=== PATIENT | male | born 1950 | race Caucasian/White ===

== ENCOUNTER → 2016-11-19 | Outpatient (REF) | payer MEDICARE | LOC: M SFHCPLAZ 12:38 | PROVIDERS: ATTEND Nurse Practitioner Adult Health | DX: R35.0 Frequency of micturition (principal) ==

== ENCOUNTER → 2017-01-17 | Outpatient (CLI) | payer MEDICARE ==
[2017-01-17 09:53] LABS: MEAN CORPUSCULAR HEMOGLOBIN 31.1 pg (27.0-33.0); MEAN CORPUSCULAR HGB CONC 34.1 g/dl (32.0-36.5); RED CELL DISTRIBUTION WIDTH 13.8 % (11.5-14.5); WHITE BLOOD COUNT 4.2 K/mm3 (4.0-10.0)
[2017-01-17 10:21] LABS: ALBUMIN 3.6 GM/DL (3.2-5.2); ALBUMIN/GLOBULIN RATIO 1.24 (1.00-1.93); ALKALINE PHOSPHATASE 64 U/L (45-117); ALT/SGPT 23 U/L (12-78); ANION GAP 7 MEQ/L (8-16); AST/SGOT 22 U/L (15-37); BILIRUBIN,TOTAL 0.7 MG/DL (0.2-1.0); BLOOD UREA NITROGEN 13 MG/DL (7-18); CALCIUM LEVEL 8.3 MG/DL (8.8-10.2); CARBON DIOXIDE LEVEL 27 MEQ/L (21-32); CHLORIDE LEVEL 107 MEQ/L (98-107); CHOLESTEROL LEVEL 143 MG/DL (<200); CREATININE FOR GFR 0.82 MG/DL (0.70-1.30); GLOMERULAR FILTRATION RATE > 60.0 (>49); GLUCOSE, FASTING 104 MG/DL (80-110); SODIUM LEVEL 141 MEQ/L (136-145); TOTAL PROTEIN 6.5 GM/DL (6.4-8.2); TRIGLYCERIDES LEVEL 136 MG/DL (<150)
== END ==
LOC: M WUC 08:06
PROVIDERS: ATTEND Nurse Practitioner Adult Health
DX: Z00.00 Encounter for general adult medical examination without abnormal findings (principal); I10 Essential (primary) hypertension

== ENCOUNTER → 2017-05-15 | Outpatient (REF) | payer MEDICARE | LOC: M LAB REF 13:19 | PROVIDERS: ATTEND Physician Assistant | DX: J02.9 Acute pharyngitis, unspecified (principal) ==

== ENCOUNTER → 2018-01-19 | Outpatient (CLI) | payer MEDICARE ==
[2018-01-19 10:18] LABS: ALBUMIN 3.8 GM/DL (3.2-5.2); ALBUMIN/GLOBULIN RATIO 1.41 (1.00-1.93); ALKALINE PHOSPHATASE 60 U/L (45-117); ALT/SGPT 28 U/L (12-78); ANION GAP 5 MEQ/L (8-16); AST/SGOT 29 U/L (7-37); BILIRUBIN,TOTAL 0.5 MG/DL (0.2-1.0); BLOOD UREA NITROGEN 12 MG/DL (7-18); CALCIUM LEVEL 8.5 MG/DL (8.8-10.2); CARBON DIOXIDE LEVEL 30 MEQ/L (21-32); CHLORIDE LEVEL 110 MEQ/L (98-107); CHOLESTEROL LEVEL 141 MG/DL (<200); GLOMERULAR FILTRATION RATE > 60.0 (>49); GLUCOSE, FASTING 107 MG/DL (70-100); HDL CHOLESTEROL 47 MG/DL (>40); LDL CHOLESTEROL 79.2 MG/DL (<100); NON-HDL-C 94 MG/DL; POTASSIUM SERUM 4.6 MEQ/L (3.5-5.1); SODIUM LEVEL 145 MEQ/L (136-145); TOTAL PROTEIN 6.5 GM/DL (6.4-8.2); TRIGLYCERIDES LEVEL 74 MG/DL (<150)
== END ==
LOC: M WUC 08:09
DX: Z00.00 Encounter for general adult medical examination without abnormal findings (principal); I10 Essential (primary) hypertension
CPT/HCPCS: 80053

== ENCOUNTER → 2020-05-30 | Outpatient (CLI) | payer MEDICARE ==
[2020-05-30 13:56] LABS: HEMATOCRIT 47.4 % (42.0-52.0); HEMOGLOBIN 15.7 g/dl (13.5-17.5); MEAN CORPUSCULAR HEMOGLOBIN 32.2 pg (27.0-33.0); MEAN CORPUSCULAR HGB CONC 33.1 g/dl (32.0-36.5); MEAN CORPUSCULAR VOLUME 97.1 fl (80.0-96.0); PLATELET COUNT, AUTOMATED 188 10^3/uL (150-450); RED BLOOD COUNT 4.88 10^6/uL (4.30-6.10)
[2020-05-30 14:03] LABS: ALBUMIN 3.9 GM/DL (3.2-5.2); ALT/SGPT 23 U/L (12-78); BILIRUBIN,TOTAL 0.6 MG/DL (0.2-1.0); BLOOD UREA NITROGEN 15 MG/DL (7-18); CALCIUM LEVEL 8.6 MG/DL (8.8-10.2); CARBON DIOXIDE LEVEL 29 MEQ/L (21-32); CHLORIDE LEVEL 109 MEQ/L (98-107); CHOLESTEROL LEVEL 164 MG/DL (<200); CHOLESTEROL RISK RATIO 3.489 (<5); CREATININE FOR GFR 0.76 MG/DL (0.70-1.30); GLOMERULAR FILTRATION RATE > 60.0 (>42); GLUCOSE, FASTING 117 MG/DL (70-100); HDL CHOLESTEROL 47 MG/DL (>40); LDL CHOLESTEROL 103 MG/DL (<100); NON-HDL-C 117 MG/DL; POTASSIUM SERUM 4.5 MEQ/L (3.5-5.1); SODIUM LEVEL 143 MEQ/L (136-145); TOTAL PROTEIN 6.6 GM/DL (6.4-8.2); TRIGLYCERIDES LEVEL 72 MG/DL (<150)
== END ==
LOC: M WUC 08:26
PROVIDERS: ATTEND Nurse Practitioner Adult Health
DX: Z00.00 Encounter for general adult medical examination without abnormal findings (principal)

== ENCOUNTER → 2021-03-07 | Outpatient (REF) | payer MEDICARE ==
[2021-03-07 13:51] LABS: ALBUMIN 3.8 GM/DL (3.2-5.2); ALT/SGPT 30 U/L (12-78); BILIRUBIN,TOTAL 0.7 MG/DL (0.2-1.0); BLOOD UREA NITROGEN 19 MG/DL (7-18); CALCIUM LEVEL 8.9 MG/DL (8.8-10.2); CARBON DIOXIDE LEVEL 26 MEQ/L (21-32); CHLORIDE LEVEL 104 MEQ/L (98-107); CREATININE FOR GFR 0.78 MG/DL (0.70-1.30); GLOMERULAR FILTRATION RATE > 60.0 (>42); GLUCOSE, FASTING 98 MG/DL (70-100); POTASSIUM SERUM 3.9 MEQ/L (3.5-5.1); SODIUM LEVEL 138 MEQ/L (136-145)
== END ==
LOC: M SFHCPLAZ 10:33
PROVIDERS: ATTEND Nurse Practitioner Adult Health
DX: I10 Essential (primary) hypertension (principal)

== ENCOUNTER → 2021-07-11 | Outpatient (CLI) | payer MEDICARE ==
[2021-07-11 10:53] LABS: HEMATOCRIT 42.1 % (42.0-52.0); HEMOGLOBIN 14.2 g/dl (13.5-17.5); MEAN CORPUSCULAR HEMOGLOBIN 31.2 pg (27.0-33.0); MEAN CORPUSCULAR HGB CONC 33.7 g/dl (32.0-36.5); MEAN CORPUSCULAR VOLUME 92.5 fl (80.0-96.0); PLATELET COUNT, AUTOMATED 187 10^3/uL (150-450); RED BLOOD COUNT 4.55 10^6/uL (4.30-6.10); WHITE BLOOD COUNT 5.9 10^3/uL (4.0-10.0)
[2021-07-11 11:31] LABS: ALBUMIN 3.5 GM/DL (3.2-5.2); ALT/SGPT 33 U/L (12-78); BILIRUBIN,TOTAL 0.6 MG/DL (0.2-1.0); BLOOD UREA NITROGEN 15 MG/DL (7-18); CALCIUM LEVEL 8.7 MG/DL (8.8-10.2); CARBON DIOXIDE LEVEL 29 MEQ/L (21-32); CHLORIDE LEVEL 108 MEQ/L (98-107); CHOLESTEROL LEVEL 168 MG/DL (<200); CHOLESTEROL RISK RATIO 3.652 (<5); CREATININE FOR GFR 0.73 MG/DL (0.70-1.30); GLOMERULAR FILTRATION RATE > 60.0 (>42); GLUCOSE, FASTING 109 MG/DL (70-100); HDL CHOLESTEROL 46 MG/DL (>40); LDL CHOLESTEROL 104 MG/DL (<100); NON-HDL-C 122 MG/DL; SODIUM LEVEL 142 MEQ/L (136-145); TOTAL PROTEIN 6.4 GM/DL (6.4-8.2); TRIGLYCERIDES LEVEL 90 MG/DL (<150)
== END ==
LOC: M LAB 08:49 → M PLALAB 08:49
PROVIDERS: ATTEND Nurse Practitioner Adult Health
DX: Z00.00 Encounter for general adult medical examination without abnormal findings (principal); Z13.220 Encounter for screening for lipoid disorders; I10 Essential (primary) hypertension

== ENCOUNTER → 2022-01-23 | Outpatient (CLI) | payer MEDICARE ==
[2022-01-23 10:21] LABS: HEMATOCRIT 46.5 % (42.0-52.0); HEMOGLOBIN 15.4 g/dl (13.5-17.5); MEAN CORPUSCULAR HEMOGLOBIN 29.9 pg (27.0-33.0); MEAN CORPUSCULAR HGB CONC 33.1 g/dl (32.0-36.5); MEAN CORPUSCULAR VOLUME 90.3 fl (80.0-96.0); PLATELET COUNT, AUTOMATED 227 10^3/uL (150-450); RED BLOOD COUNT 5.15 10^6/uL (4.30-6.10); WHITE BLOOD COUNT 5.7 10^3/uL (4.0-10.0)
[2022-01-23 10:35] LABS: ALT/SGPT 33 U/L (12-78); BILIRUBIN,TOTAL 0.6 MG/DL (0.2-1.0); BLOOD UREA NITROGEN 21 MG/DL (7-18); CALCIUM LEVEL 9.5 MG/DL (8.8-10.2); CARBON DIOXIDE LEVEL 29 MEQ/L (21-32); CHLORIDE LEVEL 104 MEQ/L (98-107); CHOLESTEROL LEVEL 166 MG/DL (<200); CHOLESTEROL RISK RATIO 4.368 (<5); CREATININE FOR GFR 0.76 MG/DL (0.70-1.30); GLOMERULAR FILTRATION RATE > 60.0 (>42); GLUCOSE, FASTING 125 MG/DL (70-100); HDL CHOLESTEROL 38 MG/DL (>40); LDL CHOLESTEROL 100 MG/DL (<100); NON-HDL-C 128 MG/DL; POTASSIUM SERUM 4.8 MEQ/L (3.5-5.1); SODIUM LEVEL 139 MEQ/L (136-145); TRIGLYCERIDES LEVEL 140 MG/DL (<150)
== END ==
LOC: M PLALAB 08:30
PROVIDERS: ATTEND Nurse Practitioner Adult Health
DX: I10 Essential (primary) hypertension (principal); Z13.220 Encounter for screening for lipoid disorders; I48.91 Unspecified atrial fibrillation

== ENCOUNTER → 2022-02-18 | Outpatient (CLI) | payer MEDICARE ==
[~2022-02-18] MED LIST: BACL1TAB9 PO; DIGO0.123 PO; DILT180C70 PO; ELIQ5TAB PO; GABA-282 PO; LISI20TA35 PO; PANT40TA29 PO; PRESCAP PO; TAMS1CAP17 PO; TRAM50TA2 PO; VITMTA PO
== END ==
LOC: M SLEEP HO 10:31
PROVIDERS: ATTEND Internal Medicine Cardiovascular Disease
DX: G47.8 Other sleep disorders (principal)

== ENCOUNTER 2022-03-13 10:02 | Inpatient (IN) | payer MEDICARE ==
[~2022-03-13] VITALS: Ht 167.6 cm; Wt 100.0 kg
[2022-03-13 10:34] LABS: BASO % 0.3 % (0.0-1.0); EOS % 0.1 % (0.0-3.0); HEMATOCRIT 44.1 % (42.0-52.0); HEMOGLOBIN 14.6 g/dl (13.5-17.5); LYMPH # 0.9 10^3/uL (1.5-5.0); LYMPH % 6.2 % (24.0-44.0); MEAN CORPUSCULAR HEMOGLOBIN 30.2 pg (27.0-33.0); MEAN CORPUSCULAR HGB CONC 33.1 g/dl (32.0-36.5); MEAN CORPUSCULAR VOLUME 91.1 fl (80.0-96.0); MONO # 0.9 10^3/uL (0.0-0.8); MONO % 6.4 % (2.0-8.0); NEUTROPHILS # 12.5 10^3/uL (1.5-8.5); NEUTROPHILS % 86.6 % (36.0-66.0); PLATELET COUNT, AUTOMATED 209 10^3/uL (150-450); RED BLOOD COUNT 4.84 10^6/uL (4.30-6.10); WHITE BLOOD COUNT 14.4 10^3/uL (4.0-10.0)
[2022-03-13] MEDS ORDERED: ACETAMINOPHEN 325 MG TAB PO ONE (10:35)
[2022-03-13] MEDS ORDERED: cefTRIAXone SOD 2 GM in D5W MINI-BAG PLUS 50 ML IV ONE (10:35)
[2022-03-13 10:58] LABS: OSMOLALITY SERUM 284 MOSM/KG (280-301)
[2022-03-13 11:07] LABS: ALBUMIN 3.8 GM/DL (3.2-5.2); ALT/SGPT 26 U/L (12-78); BILIRUBIN,DIRECT 0.3 MG/DL (0.0-0.2); BILIRUBIN,TOTAL 0.9 MG/DL (0.2-1.0); BLOOD UREA NITROGEN 14 MG/DL (7-18); CALCIUM LEVEL 9.3 MG/DL (8.8-10.2); CARBON DIOXIDE LEVEL 27 MEQ/L (21-32); CHLORIDE LEVEL 104 MEQ/L (98-107); CREATININE FOR GFR 0.81 MG/DL (0.70-1.30); GLOMERULAR FILTRATION RATE > 60.0 (>42); GLUCOSE, FASTING 124 MG/DL (70-100); POTASSIUM SERUM 4.5 MEQ/L (3.5-5.1); SODIUM LEVEL 138 MEQ/L (136-145); TOTAL PROTEIN 7.3 GM/DL (6.4-8.2)
[2022-03-13 11:14] LABS: RSV AMPLIFICATION NEGATIVE (NEGATIVE)
[2022-03-13] MEDS ORDERED: BACL1TAB9 PO (12:28)
[2022-03-13] MEDS ORDERED: PANT40TA29 PO (12:28)
[2022-03-13] MEDS ORDERED: PRESCAP PO (12:28)
[2022-03-13] MEDS ORDERED: LISI20TA35 PO (12:28)
[2022-03-13] MEDS ORDERED: DILT180C70 PO (12:28)
[2022-03-13] MEDS ORDERED: GABA-282 PO (12:28)
[2022-03-13] MEDS ORDERED: DIGO0.123 PO (12:28)
[2022-03-13] MEDS ORDERED: TAMS1CAP17 PO (12:28)
[2022-03-13] MEDS ORDERED: ELIQ5TAB PO (12:28)
[2022-03-13] MEDS ORDERED: VITMTA PO (12:28)
[2022-03-13] MEDS ORDERED: TRAM50TA2 PO (12:28)
[2022-03-13] MEDS ORDERED: HOME MED LIST COMPLETE! XX SCH (12:35)
[2022-03-13 13:16] LABS: DIGOXIN LEVEL 0.6 NG/ML (0.5-2.0)
[2022-03-13] MEDS ORDERED: METOPROLOL 5 MG/5 ML VIAL IV STA (14:51)
[2022-03-13 16:18] LABS: INR 1.16; PROTHROMBIN TIME 15.2 SECONDS (12.7-14.5)
[2022-03-13 16:19] LABS: PARTIAL THROMBOPLASTIN TIME 29.7 SECONDS (25.9-37.0)
[2022-03-13 16:25] VITALS: BP 164/80
[2022-03-13] MEDS: NS 1,000 ML IV SCH (16:27)
[2022-03-13] MEDS ORDERED: ceFAZolin SOD 2 GM in IV 1 EA IV SCH (19:00)
[2022-03-13 20:00] VITALS: BP 149/87
[2022-03-13] MEDS: APIXABAN 5 MG TAB (ELIQUIS) PO SCH (20:22)
[2022-03-13] MEDS: GABAPENTIN 300 MG CAP PO SCH (20:22)
[2022-03-13] MEDS: diltiaZEM **CD** 180 MG CAP PO SCH (20:22)
[2022-03-13] MEDS: OCUVITE 1 TAB PO SCH (20:22)
[2022-03-13] MEDS: BACLOFEN 10 MG TAB PO SCH (20:22)
[2022-03-13] MEDS: traMADol 50 MG TAB PO SCH (20:22)
[2022-03-13] MEDS ORDERED: NS 1,000 ML IV ONE (21:10)
[2022-03-13] MEDS ORDERED: NS 500 ML IV ONE (21:10)
[2022-03-13 21:43] LABS: MAGNESIUM LEVEL 1.9 MG/DL (1.8-2.4)
[2022-03-13 22:21] VITALS: BP 126/66
[2022-03-13] MEDS: ACETAMINOPHEN TAB 650MG DOSE (2X325MG) PO PRN (22:33)
[2022-03-13] MEDS ORDERED: carisoprodoL 350 MG TAB PO ONE (23:00)
[2022-03-13] MEDS ORDERED: METOPROLOL TART 12.5 MG PER 1/2 TAB PO ONE (23:00)
[2022-03-14] VITALS (8 sets, daily range): BP systolic 90–138; BP diastolic 60–67
[2022-03-14] MEDS ORDERED: PIPERACILLIN/TAZOBACTAM SOD 3.375 GM in D5W MINI-BAG PLUS 50 ML IV SCH (00:25)
[2022-03-14] MEDS ORDERED: NS 500 ML IV ONE (00:25)
[2022-03-14] MEDS: PIPERACILLIN/TAZOBACTAM SOD 4.5 GM in D5W MINI-BAG PLUS 50 ML IV SCH ×4 (01:25→20:21)
[2022-03-14] MEDS: NS 1,000 ML IV SCH ×3 (02:47→23:53)
[2022-03-14] MEDS ORDERED: VANCOMYCIN HCL 1,000 MG, VIAL MATE ADAPTER 1 EACH in NS 250 ML IV ONE ×2 (03:00→04:00)
[2022-03-14 05:30] LABS: MEAN CORPUSCULAR HEMOGLOBIN 30.5 pg (27.0-33.0); MEAN CORPUSCULAR VOLUME 92.5 fl (80.0-96.0); PLATELET COUNT, AUTOMATED 155 10^3/uL (150-450); WHITE BLOOD COUNT 10.5 10^3/uL (4.0-10.0)
[2022-03-14 05:36] LABS: HEMOGLOBIN 12.2 g/dl (13.5-17.5)
[2022-03-14] MEDS ORDERED: OLANZapine INTRAMUSCULAR 10MG VIAL IM ONE (06:00)
[2022-03-14 06:03] LABS: ALBUMIN 2.8 GM/DL (3.2-5.2); ALT/SGPT 22 U/L (12-78); BILIRUBIN,TOTAL 1.3 MG/DL (0.2-1.0); BLOOD UREA NITROGEN 13 MG/DL (7-18); CARBON DIOXIDE LEVEL 29 MEQ/L (21-32); CHLORIDE LEVEL 108 MEQ/L (98-107); CREATININE FOR GFR 0.78 MG/DL (0.70-1.30); GLOMERULAR FILTRATION RATE > 60.0 (>42); GLUCOSE, FASTING 120 MG/DL (70-100); POTASSIUM SERUM 4.1 MEQ/L (3.5-5.1); SODIUM LEVEL 140 MEQ/L (136-145); TOTAL PROTEIN 5.6 GM/DL (6.4-8.2)
[2022-03-14 08:47] LABS: VITAMIN B12 LEVEL 417 PG/ML (247-911)
[2022-03-14] MEDS: GABAPENTIN 300 MG CAP PO SCH ×2 (09:34→20:20)
[2022-03-14] MEDS: BACLOFEN 10 MG TAB PO SCH ×2 (09:34→20:20)
[2022-03-14] MEDS: OCUVITE 1 TAB PO SCH ×2 (09:35→20:20)
[2022-03-14] MEDS: PANTOPRAZOLE 40MG TAB (PROTONIX) PO SCH (09:35)
[2022-03-14] MEDS: MULTIVITAMINS/MINERALS THERAP 1 TAB PO SCH (09:35)
[2022-03-14] MEDS: APIXABAN 5 MG TAB (ELIQUIS) PO SCH ×2 (09:35→20:19)
[2022-03-14] MEDS: TAMSULOSIN 0.4 MG CAP PO SCH (09:35)
[2022-03-14] MEDS: traMADol 50 MG TAB PO SCH ×2 (09:37→20:20)
[2022-03-14] MEDS: DIGOXIN 0.125 MG TAB PO SCH (09:38)
[2022-03-14] MEDS: hydroCHLOROthiazide 12.5 MG CAPSULE PO SCH (09:41)
[2022-03-14] MEDS ORDERED: MIRALAX *UNIT DOSE* 17GM PACKET PO PRN (14:40)
[2022-03-14] MEDS: VANCOMYCIN HCL 500 MG in D5W MINI-BAG PLUS 100 ML IV SCH (15:11)
[2022-03-14] MEDS: VANCOMYCIN HCL 750 MG, VIAL MATE ADAPTER 1 EACH in NS 250 ML IV SCH (16:30)
[2022-03-14] MEDS: diltiaZEM **CD** 180 MG CAP PO SCH (20:19)
[2022-03-14] MEDS: DOCUSATE SODIUM 100MG CAPSULE PO SCH (20:20)
[2022-03-14] MEDS: SENNA 8.6 MG TAB (SENOKOT) PO SCH (20:20)
[2022-03-15] VITALS (7 sets, daily range): BP systolic 100–135; BP diastolic 60–78
[2022-03-15] MEDS: PIPERACILLIN/TAZOBACTAM SOD 4.5 GM in D5W MINI-BAG PLUS 50 ML IV SCH ×4 (02:13→21:41)
[2022-03-15] MEDS: VANCOMYCIN HCL 500 MG in D5W MINI-BAG PLUS 100 ML IV SCH (03:38)
[2022-03-15] MEDS: VANCOMYCIN HCL 750 MG, VIAL MATE ADAPTER 1 EACH in NS 250 ML IV SCH (04:53)
[2022-03-15 05:24] LABS: HEMATOCRIT 38.3 % (42.0-52.0); HEMOGLOBIN 12.5 g/dl (13.5-17.5); MEAN CORPUSCULAR HEMOGLOBIN 29.5 pg (27.0-33.0); MEAN CORPUSCULAR HGB CONC 32.6 g/dl (32.0-36.5); MEAN CORPUSCULAR VOLUME 90.3 fl (80.0-96.0); PLATELET COUNT, AUTOMATED 188 10^3/uL (150-450); RED BLOOD COUNT 4.24 10^6/uL (4.30-6.10)
[2022-03-15 05:43] LABS: ERYTHROCYTE SEDIMENTATION RATE 53 mm/hr (0-20)
[2022-03-15 05:45] LABS: ALBUMIN 2.6 GM/DL (3.2-5.2); ALT/SGPT 19 U/L (12-78); BILIRUBIN,TOTAL 0.9 MG/DL (0.2-1.0); BLOOD UREA NITROGEN 14 MG/DL (7-18); CALCIUM LEVEL 8.3 MG/DL (8.8-10.2); CARBON DIOXIDE LEVEL 23 MEQ/L (21-32); CHLORIDE LEVEL 108 MEQ/L (98-107); GLOMERULAR FILTRATION RATE > 60.0 (>42); GLUCOSE, FASTING 137 MG/DL (70-100); POTASSIUM SERUM 3.4 MEQ/L (3.5-5.1); SODIUM LEVEL 141 MEQ/L (136-145); TOTAL PROTEIN 5.7 GM/DL (6.4-8.2)
[2022-03-15 07:58] LABS: NT-PRO BNP 1877 PG/ML (<125)
[2022-03-15] MEDS ORDERED: POTASSIUM CHLORIDE 10MEQ SR TABLET PO ONE (08:00)
[2022-03-15] MEDS ORDERED: ISOVUE-370 76% 100ML VIAL As Ordered ONE (08:11)
[2022-03-15] MEDS: DOCUSATE SODIUM 100MG CAPSULE PO SCH ×3 (08:52→20:41)
[2022-03-15] MEDS: OCUVITE 1 TAB PO SCH ×2 (08:52→20:34)
[2022-03-15] MEDS: hydroCHLOROthiazide 12.5 MG CAPSULE PO SCH (08:52)
[2022-03-15] MEDS: traMADol 50 MG TAB PO SCH ×2 (08:53→20:33)
[2022-03-15] MEDS: PANTOPRAZOLE 40MG TAB (PROTONIX) PO SCH (08:54)
[2022-03-15] MEDS: GABAPENTIN 300 MG CAP PO SCH ×2 (08:54→20:34)
[2022-03-15] MEDS: APIXABAN 5 MG TAB (ELIQUIS) PO SCH ×2 (08:55→20:34)
[2022-03-15] MEDS: TAMSULOSIN 0.4 MG CAP PO SCH (08:55)
[2022-03-15] MEDS: DIGOXIN 0.125 MG TAB PO SCH (08:55)
[2022-03-15] MEDS: MULTIVITAMINS/MINERALS THERAP 1 TAB PO SCH (08:55)
[2022-03-15] MEDS: BACLOFEN 10 MG TAB PO SCH ×2 (08:55→20:34)
[2022-03-15] MEDS ORDERED: FUROSEMIDE 20MG/2ML VIAL (J1940) IV ONE (09:45)
[2022-03-15] MEDS ORDERED: ALBUTEROL SULFATE 2.5 MG/0.5 ML INH NEB SOLN NEB PRN (09:45)
[2022-03-15] MEDS: methylPREDNISolone 125MG 2ML VIAL IV SCH ×2 (10:08→21:41)
[2022-03-15] MEDS: IPRATROPIUM 0.5MG/ALBUTEROL 2.5MG INH SOL UD 3ML (DUONEB) NEB SCH ×3 (11:51→19:48)
[2022-03-15 15:43] LABS: HEPATITIS B SURFACE ANTIGEN NEGATIVE (NEGATIVE)
[2022-03-15 16:12] LABS: HEPATITIS C VIRUS ABY INDEX 0.1 INDEX (<0.8); HIV 1&2 SCREEN CENTAUR NEGATIVE (NEGATIVE)
[2022-03-15] MEDS: FLUCONAZOLE 100 MG TAB PO SCH (16:29)
[2022-03-15] MEDS: SENNA 8.6 MG TAB (SENOKOT) PO SCH ×2 (20:34→20:42)
[2022-03-15] MEDS: diltiaZEM **CD** 180 MG CAP PO SCH (20:35)
[2022-03-16] MEDS: IPRATROPIUM 0.5MG/ALBUTEROL 2.5MG INH SOL UD 3ML (DUONEB) NEB SCH ×4 (02:00→19:35)
[2022-03-16] MEDS: PIPERACILLIN/TAZOBACTAM SOD 4.5 GM in D5W MINI-BAG PLUS 50 ML IV SCH (02:41)
[2022-03-16 04:00] VITALS: BP 117/67
[2022-03-16] MEDS ORDERED: OLANZapine INTRAMUSCULAR 10MG VIAL IM ONE (04:00)
[2022-03-16] MEDS ORDERED: NS 1,000 ML IV SCH (06:15)
[2022-03-16 07:42] LABS: HEMATOCRIT 35.8 % (42.0-52.0); HEMOGLOBIN 11.8 g/dl (13.5-17.5); MEAN CORPUSCULAR HEMOGLOBIN 29.5 pg (27.0-33.0); MEAN CORPUSCULAR VOLUME 89.5 fl (80.0-96.0); PLATELET COUNT, AUTOMATED 192 10^3/uL (150-450)
[2022-03-16 08:00] VITALS: BP 126/67
[2022-03-16 08:07] LABS: ALBUMIN 2.6 GM/DL (3.2-5.2); ALT/SGPT 27 U/L (12-78); BILIRUBIN,TOTAL 0.5 MG/DL (0.2-1.0); BLOOD UREA NITROGEN 19 MG/DL (7-18); CALCIUM LEVEL 8.6 MG/DL (8.8-10.2); CARBON DIOXIDE LEVEL 26 MEQ/L (21-32); CHLORIDE LEVEL 107 MEQ/L (98-107); CREATININE FOR GFR 0.77 MG/DL (0.70-1.30); GLOMERULAR FILTRATION RATE > 60.0 (>42); GLUCOSE, FASTING 173 MG/DL (70-100); POTASSIUM SERUM 3.3 MEQ/L (3.5-5.1); SODIUM LEVEL 142 MEQ/L (136-145); TOTAL PROTEIN 5.8 GM/DL (6.4-8.2)
[2022-03-16] MEDS ORDERED: POTASSIUM CHLORIDE 10MEQ SR TABLET PO ONE (09:00)
[2022-03-16] MEDS: MULTIVITAMINS/MINERALS THERAP 1 TAB PO SCH (09:10)
[2022-03-16] MEDS: traMADol 50 MG TAB PO SCH ×2 (09:10→20:41)
[2022-03-16] MEDS: GABAPENTIN 300 MG CAP PO SCH ×2 (09:10→20:41)
[2022-03-16] MEDS: TAMSULOSIN 0.4 MG CAP PO SCH (09:10)
[2022-03-16] MEDS: FLUCONAZOLE 100 MG TAB PO SCH (09:10)
[2022-03-16] MEDS: hydroCHLOROthiazide 12.5 MG CAPSULE PO SCH (09:11)
[2022-03-16] MEDS: OCUVITE 1 TAB PO SCH ×2 (09:11→20:40)
[2022-03-16] MEDS: BACLOFEN 10 MG TAB PO SCH ×2 (09:11→20:41)
[2022-03-16] MEDS: methylPREDNISolone 125MG 2ML VIAL IV SCH (09:12)
[2022-03-16] MEDS: PANTOPRAZOLE 40MG TAB (PROTONIX) PO SCH (09:12)
[2022-03-16] MEDS: DIGOXIN 0.125 MG TAB PO SCH (09:12)
[2022-03-16] MEDS: APIXABAN 5 MG TAB (ELIQUIS) PO SCH ×2 (09:12→20:41)
[2022-03-16] MEDS: DOCUSATE SODIUM 100MG CAPSULE PO SCH ×2 (09:12→20:41)
[2022-03-16] MEDS: ceFAZolin SOD 1 GM in D5W MINI-BAG PLUS 50 ML IV SCH ×3 (09:13→23:07)
[2022-03-16] MEDS: FUROSEMIDE 40MG/4ML VIAL (J1940) IV SCH (10:41)
[2022-03-16 12:00] VITALS: BP 129/71
[2022-03-16 20:25] VITALS: BP 133/65
[2022-03-16] MEDS: diltiaZEM **CD** 180 MG CAP PO SCH (20:40)
[2022-03-16] MEDS: SENNA 8.6 MG TAB (SENOKOT) PO SCH (20:42)
[2022-03-17] MEDS: IPRATROPIUM 0.5MG/ALBUTEROL 2.5MG INH SOL UD 3ML (DUONEB) NEB SCH ×4 (02:00→20:23)
[2022-03-17] MEDS: ACETAMINOPHEN TAB 650MG DOSE (2X325MG) PO PRN (02:05)
[2022-03-17 04:52] VITALS: BP 107/77
[2022-03-17 07:38] LABS: HEMOGLOBIN 12.2 g/dl (13.5-17.5); MEAN CORPUSCULAR HEMOGLOBIN 29.8 pg (27.0-33.0); MEAN CORPUSCULAR VOLUME 90.2 fl (80.0-96.0); PLATELET COUNT, AUTOMATED 230 10^3/uL (150-450); WHITE BLOOD COUNT 9.8 10^3/uL (4.0-10.0)
[2022-03-17 08:00] VITALS: BP 123/91
[2022-03-17 08:12] LABS: ALBUMIN 2.7 GM/DL (3.2-5.2); ALT/SGPT 44 U/L (12-78); BILIRUBIN,TOTAL 0.2 MG/DL (0.2-1.0); BLOOD UREA NITROGEN 21 MG/DL (7-18); CALCIUM LEVEL 8.2 MG/DL (8.8-10.2); CARBON DIOXIDE LEVEL 29 MEQ/L (21-32); CHLORIDE LEVEL 106 MEQ/L (98-107); CREATININE FOR GFR 0.68 MG/DL (0.70-1.30); GLOMERULAR FILTRATION RATE > 60.0 (>42); GLUCOSE, FASTING 149 MG/DL (70-100); POTASSIUM SERUM 3.4 MEQ/L (3.5-5.1); SODIUM LEVEL 142 MEQ/L (136-145); TOTAL PROTEIN 5.6 GM/DL (6.4-8.2)
[2022-03-17] MEDS: ceFAZolin SOD 1 GM in D5W MINI-BAG PLUS 50 ML IV SCH ×3 (08:48→23:02)
[2022-03-17] MEDS: DOCUSATE SODIUM 100MG CAPSULE PO SCH ×2 (08:49→20:40)
[2022-03-17] MEDS: FUROSEMIDE 40MG/4ML VIAL (J1940) IV SCH ×2 (08:49→16:03)
[2022-03-17] MEDS: BACLOFEN 10 MG TAB PO SCH ×2 (08:50→20:39)
[2022-03-17] MEDS: APIXABAN 5 MG TAB (ELIQUIS) PO SCH ×2 (08:50→20:40)
[2022-03-17] MEDS: GABAPENTIN 300 MG CAP PO SCH ×2 (08:51→20:39)
[2022-03-17] MEDS: FLUCONAZOLE 100 MG TAB PO SCH (08:51)
[2022-03-17] MEDS: OCUVITE 1 TAB PO SCH ×2 (08:51→20:39)
[2022-03-17] MEDS: traMADol 50 MG TAB PO SCH ×2 (08:51→20:40)
[2022-03-17] MEDS: PANTOPRAZOLE 40MG TAB (PROTONIX) PO SCH (08:52)
[2022-03-17] MEDS: hydroCHLOROthiazide 12.5 MG CAPSULE PO SCH (08:52)
[2022-03-17] MEDS: DIGOXIN 0.125 MG TAB PO SCH (08:52)
[2022-03-17] MEDS: TAMSULOSIN 0.4 MG CAP PO SCH (08:52)
[2022-03-17] MEDS: MULTIVITAMINS/MINERALS THERAP 1 TAB PO SCH (08:52)
[2022-03-17] MEDS ORDERED: predniSONE 20 MG TAB PO SCH (09:00)
[2022-03-17] MEDS ORDERED: POTASSIUM CHLORIDE 10MEQ SR TABLET PO ONE (20:00)
[2022-03-17 20:17] VITALS: BP 134/67
[2022-03-17] MEDS: diltiaZEM **CD** 180 MG CAP PO SCH (20:40)
[2022-03-17] MEDS: SENNA 8.6 MG TAB (SENOKOT) PO SCH (20:40)
[2022-03-18] MEDS: IPRATROPIUM 0.5MG/ALBUTEROL 2.5MG INH SOL UD 3ML (DUONEB) NEB SCH ×4 (02:00→19:25)
[2022-03-18 03:55] VITALS: BP 128/72
[2022-03-18 08:12] LABS: HEMATOCRIT 39.4 % (42.0-52.0); HEMOGLOBIN 12.9 g/dl (13.5-17.5); MEAN CORPUSCULAR HEMOGLOBIN 30.1 pg (27.0-33.0); MEAN CORPUSCULAR HGB CONC 32.7 g/dl (32.0-36.5); MEAN CORPUSCULAR VOLUME 91.8 fl (80.0-96.0); PLATELET COUNT, AUTOMATED 250 10^3/uL (150-450); RED BLOOD COUNT 4.29 10^6/uL (4.30-6.10); WHITE BLOOD COUNT 7.6 10^3/uL (4.0-10.0)
[2022-03-18 08:16] VITALS: BP 136/74
[2022-03-18] MEDS: predniSONE 20 MG TAB PO SCH (08:34)
[2022-03-18] MEDS: GABAPENTIN 300 MG CAP PO SCH ×2 (08:34→21:02)
[2022-03-18] MEDS: FLUCONAZOLE 100 MG TAB PO SCH (08:34)
[2022-03-18] MEDS: TAMSULOSIN 0.4 MG CAP PO SCH (08:35)
[2022-03-18] MEDS: hydroCHLOROthiazide 12.5 MG CAPSULE PO SCH (08:35)
[2022-03-18] MEDS: DOCUSATE SODIUM 100MG CAPSULE PO SCH ×2 (08:35→21:02)
[2022-03-18] MEDS: OCUVITE 1 TAB PO SCH ×2 (08:35→21:02)
[2022-03-18] MEDS: PANTOPRAZOLE 40MG TAB (PROTONIX) PO SCH (08:35)
[2022-03-18] MEDS: APIXABAN 5 MG TAB (ELIQUIS) PO SCH ×2 (08:36→21:02)
[2022-03-18] MEDS: MULTIVITAMINS/MINERALS THERAP 1 TAB PO SCH (08:36)
[2022-03-18] MEDS: BACLOFEN 10 MG TAB PO SCH ×2 (08:36→21:01)
[2022-03-18] MEDS: ceFAZolin SOD 1 GM in D5W MINI-BAG PLUS 50 ML IV SCH ×3 (08:37→23:00)
[2022-03-18] MEDS: FUROSEMIDE 40MG/4ML VIAL (J1940) IV SCH ×2 (08:37→17:05)
[2022-03-18] MEDS: DIGOXIN 0.125 MG TAB PO SCH (08:40)
[2022-03-18] MEDS: traMADol 50 MG TAB PO SCH ×2 (08:41→21:03)
[2022-03-18 08:47] LABS: ALBUMIN 2.7 GM/DL (3.2-5.2); ALT/SGPT 54 U/L (12-78); BILIRUBIN,TOTAL 0.4 MG/DL (0.2-1.0); BLOOD UREA NITROGEN 20 MG/DL (7-18); C REACTIVE PROTEIN QUANTITATIV 2.25 MG/DL (0.00-0.30); CALCIUM LEVEL 8.7 MG/DL (8.8-10.2); CARBON DIOXIDE LEVEL 30 MEQ/L (21-32); CHLORIDE LEVEL 108 MEQ/L (98-107); CREATININE FOR GFR 0.65 MG/DL (0.70-1.30); GLOMERULAR FILTRATION RATE > 60.0 (>42); GLUCOSE, FASTING 99 MG/DL (70-100); POTASSIUM SERUM 3.5 MEQ/L (3.5-5.1); SODIUM LEVEL 143 MEQ/L (136-145); TOTAL PROTEIN 6.1 GM/DL (6.4-8.2)
[2022-03-18 08:58] LABS: ERYTHROCYTE SEDIMENTATION RATE 35 mm/hr (0-20)
[2022-03-18 15:15] VITALS: BP 142/79
[2022-03-18] MEDS: SENNA 8.6 MG TAB (SENOKOT) PO SCH (21:02)
[2022-03-18] MEDS: diltiaZEM **CD** 180 MG CAP PO SCH (21:02)
[2022-03-18 22:00] VITALS: BP 139/88
[2022-03-19] MEDS ORDERED: RAMELTEON 8 MG TAB (ROZEREM) PO PRN
[2022-03-19] MEDS: IPRATROPIUM 0.5MG/ALBUTEROL 2.5MG INH SOL UD 3ML (DUONEB) NEB SCH ×4 (02:00→19:11)
[2022-03-19 06:00] VITALS: BP 134/87
[2022-03-19 06:00] LABS: HEMATOCRIT 43.1 % (42.0-52.0); HEMOGLOBIN 13.9 g/dl (13.5-17.5); MEAN CORPUSCULAR HEMOGLOBIN 29.6 pg (27.0-33.0); MEAN CORPUSCULAR HGB CONC 32.3 g/dl (32.0-36.5); MEAN CORPUSCULAR VOLUME 91.7 fl (80.0-96.0); PLATELET COUNT, AUTOMATED 261 10^3/uL (150-450); WHITE BLOOD COUNT 7.7 10^3/uL (4.0-10.0)
[2022-03-19 06:33] LABS: ALBUMIN 2.9 GM/DL (3.2-5.2); ALT/SGPT 48 U/L (12-78); BILIRUBIN,TOTAL 0.5 MG/DL (0.2-1.0); BLOOD UREA NITROGEN 17 MG/DL (7-18); CARBON DIOXIDE LEVEL 32 MEQ/L (21-32); CHLORIDE LEVEL 105 MEQ/L (98-107); CREATININE FOR GFR 0.74 MG/DL (0.70-1.30); GLOMERULAR FILTRATION RATE > 60.0 (>42); GLUCOSE, FASTING 86 MG/DL (70-100); POTASSIUM SERUM 4.4 MEQ/L (3.5-5.1); SODIUM LEVEL 143 MEQ/L (136-145); TOTAL PROTEIN 6.3 GM/DL (6.4-8.2)
[2022-03-19] MEDS: traMADol 50 MG TAB PO SCH ×2 (09:00→20:31)
[2022-03-19] MEDS: ceFAZolin SOD 1 GM in D5W MINI-BAG PLUS 50 ML IV SCH (09:16)
[2022-03-19] MEDS: FLUCONAZOLE 100 MG TAB PO SCH (10:12)
[2022-03-19] MEDS: TAMSULOSIN 0.4 MG CAP PO SCH (10:12)
[2022-03-19] MEDS: DIGOXIN 0.125 MG TAB PO SCH (10:13)
[2022-03-19] MEDS: PANTOPRAZOLE 40MG TAB (PROTONIX) PO SCH (10:13)
[2022-03-19] MEDS: predniSONE 20 MG TAB PO SCH (10:14)
[2022-03-19] MEDS: GABAPENTIN 300 MG CAP PO SCH ×2 (10:14→20:30)
[2022-03-19] MEDS: APIXABAN 5 MG TAB (ELIQUIS) PO SCH ×2 (10:15→20:30)
[2022-03-19] MEDS: MULTIVITAMINS/MINERALS THERAP 1 TAB PO SCH (10:17)
[2022-03-19] MEDS: BACLOFEN 10 MG TAB PO SCH ×2 (10:17→20:31)
[2022-03-19] MEDS: OCUVITE 1 TAB PO SCH ×2 (10:18→20:30)
[2022-03-19] MEDS: hydroCHLOROthiazide 12.5 MG CAPSULE PO SCH (10:19)
[2022-03-19] MEDS: DOCUSATE SODIUM 100MG CAPSULE PO SCH ×2 (10:19→20:29)
[2022-03-19] MEDS: FUROSEMIDE 40MG/4ML VIAL (J1940) IV SCH ×2 (10:25→16:55)
[2022-03-19 11:13] VITALS: BP 137/86
[2022-03-19] MEDS: CEPHALEXIN 500 MG CAP PO SCH ×3 (13:11→20:30)
[2022-03-19 14:00] VITALS: BP 134/79
[2022-03-19] MEDS: diltiaZEM **CD** 180 MG CAP PO SCH (20:30)
[2022-03-19] MEDS: SENNA 8.6 MG TAB (SENOKOT) PO SCH (20:31)
[2022-03-19 22:00] VITALS: BP 125/85
[2022-03-20] MEDS: IPRATROPIUM 0.5MG/ALBUTEROL 2.5MG INH SOL UD 3ML (DUONEB) NEB SCH ×2 (02:00→07:46)
[2022-03-20 06:00] VITALS: BP 127/71
[2022-03-20 06:14] LABS: HEMATOCRIT 43.1 % (42.0-52.0); HEMOGLOBIN 13.9 g/dl (13.5-17.5); MEAN CORPUSCULAR HEMOGLOBIN 29.3 pg (27.0-33.0); MEAN CORPUSCULAR HGB CONC 32.3 g/dl (32.0-36.5); MEAN CORPUSCULAR VOLUME 90.7 fl (80.0-96.0); PLATELET COUNT, AUTOMATED 291 10^3/uL (150-450); RED BLOOD COUNT 4.75 10^6/uL (4.30-6.10); WHITE BLOOD COUNT 8.1 10^3/uL (4.0-10.0)
[2022-03-20 06:37] LABS: ALBUMIN 2.7 GM/DL (3.2-5.2); ALT/SGPT 36 U/L (12-78); BILIRUBIN,TOTAL 0.5 MG/DL (0.2-1.0); BLOOD UREA NITROGEN 16 MG/DL (7-18); CALCIUM LEVEL 8.8 MG/DL (8.8-10.2); CARBON DIOXIDE LEVEL 31 MEQ/L (21-32); CHLORIDE LEVEL 104 MEQ/L (98-107); CREATININE FOR GFR 0.74 MG/DL (0.70-1.30); GLOMERULAR FILTRATION RATE > 60.0 (>42); GLUCOSE, FASTING 111 MG/DL (70-100); POTASSIUM SERUM 4.4 MEQ/L (3.5-5.1); SODIUM LEVEL 140 MEQ/L (136-145); TOTAL PROTEIN 5.9 GM/DL (6.4-8.2)
[2022-03-20 08:27] VITALS: BP 132/68
[2022-03-20] MEDS: DOCUSATE SODIUM 100MG CAPSULE PO SCH (08:41)
[2022-03-20] MEDS: hydroCHLOROthiazide 12.5 MG CAPSULE PO SCH (08:42)
[2022-03-20] MEDS: OCUVITE 1 TAB PO SCH (08:42)
[2022-03-20] MEDS: predniSONE 20 MG TAB PO SCH (08:42)
[2022-03-20 08:43] VITALS: BP 132/68
[2022-03-20] MEDS: CEPHALEXIN 500 MG CAP PO SCH (08:44)
[2022-03-20] MEDS: DIGOXIN 0.125 MG TAB PO SCH (08:44)
[2022-03-20] MEDS: APIXABAN 5 MG TAB (ELIQUIS) PO SCH (08:44)
[2022-03-20] MEDS: GABAPENTIN 300 MG CAP PO SCH (08:44)
[2022-03-20] MEDS: MULTIVITAMINS/MINERALS THERAP 1 TAB PO SCH (08:45)
[2022-03-20] MEDS: PANTOPRAZOLE 40MG TAB (PROTONIX) PO SCH (08:45)
[2022-03-20] MEDS: BACLOFEN 10 MG TAB PO SCH (08:45)
[2022-03-20] MEDS: TAMSULOSIN 0.4 MG CAP PO SCH (08:45)
[2022-03-20] MEDS: traMADol 50 MG TAB PO SCH (08:46)
[2022-03-20] MEDS ORDERED: PRED20TA PO (08:54)
[2022-03-20] MEDS ORDERED: CEPH500C PO (08:54)
[2022-03-20 08:57] VITALS: BP 137/68
[2022-03-20] MEDS: FUROSEMIDE 40MG/4ML VIAL (J1940) IV SCH (09:37)
== END 2022-03-20 11:03 | disposition home health service (06) | DRG 871 ==
LOC: EDBD 10:02 → M ED 10:02 → M ED INP 14:51 → M PCU 16:25 → M MSPAV 03-18 15:12
PROVIDERS: ADMIT Internal Medicine; ATTEND Family Medicine
DX: A41.9 Sepsis, unspecified organism (principal); G93.41 Metabolic encephalopathy; L03.115 Cellulitis of right lower limb; L03.311 Cellulitis of abdominal wall; J44.1 Chronic obstructive pulmonary disease with (acute) exacerbation; I10 Essential (primary) hypertension; K21.9 Gastro-esophageal reflux disease without esophagitis; I48.91 Unspecified atrial fibrillation; E87.6 Hypokalemia; F03.90 Unspecified dementia, unspecified severity, without behavioral disturbance, psychotic disturbance, mood disturbance, and anxiety; E04.1 Nontoxic single thyroid nodule; G62.9 Polyneuropathy, unspecified; Z79.899 Other long term (current) drug therapy; Z88.6 Allergy status to analgesic agent; Z91.018 Allergy to other foods; Z87.891 Personal history of nicotine dependence; N40.0 Benign prostatic hyperplasia without lower urinary tract symptoms; Z98.41 Cataract extraction status, right eye; Z98.42 Cataract extraction status, left eye; Z85.828 Personal history of other malignant neoplasm of skin; L27.0 Generalized skin eruption due to drugs and medicaments taken internally

== ENCOUNTER → 2022-04-22 | Outpatient (CLI) | payer MEDICARE ==
[~2022-04-22] MED LIST changes: +CEPH500C PO; +PRED20TA PO
== END ==
LOC: M WHC 10:28
PROVIDERS: ATTEND Nurse Practitioner Adult Health
DX: E04.2 Nontoxic multinodular goiter (principal)

== ENCOUNTER → 2022-07-11 | Outpatient (CLI) | payer MEDICARE | LOC: M SOG 08:30 | PROVIDERS: ATTEND Orthopaedic Surgery Hand Surgery | DX: M79.641 Pain in right hand (principal); M19.041 Primary osteoarthritis, right hand ==

== ENCOUNTER → 2022-07-14 | Outpatient (CLI) | payer MEDICARE | LOC: M LABSMTC 09:05 | PROVIDERS: ATTEND Anesthesiology | DX: Z01.812 Encounter for preprocedural laboratory examination (principal); Z20.822 Contact with and (suspected) exposure to COVID-19 ==

== ENCOUNTER 2022-07-15 06:11 | Day surgery (SDC) | payer MEDICARE ==
[~2022-07-15] VITALS: Ht 167.6 cm; Wt 105.2 kg
[~2022-07-15 06:11] MED LIST changes: +LIDOCAINE W/EPINEPHRINE 1% 20ML VIAL XX ONE; +SODIUM BICARBONATE 8.4% INJ 50MEQ 50 ML VIAL XX ONE
[2022-07-15] MEDS ORDERED: BUPIVACAINE HCL 0.25% 30ML VIAL As Ordered ONE (06:41)
[2022-07-15] MEDS ORDERED: BACITRACIN OINTMENT 30GM TUBE As Ordered ONE (06:41)
[2022-07-15 08:00] VITALS: BP 140/79
== END 2022-07-15 08:19 | disposition home or self-care (01) ==
LOC: M SDC 06:11
PROVIDERS: ATTEND Orthopaedic Surgery Hand Surgery
DX: G56.01 Carpal tunnel syndrome, right upper limb (principal); Z91.018 Allergy to other foods; Z88.8 Allergy status to other drugs, medicaments and biological substances

== ENCOUNTER → 2022-07-17 | Outpatient (CLI) | payer MEDICARE ==
[~2022-07-17] MED LIST changes: -LIDOCAINE W/EPINEPHRINE 1% 20ML VIAL XX ONE; -SODIUM BICARBONATE 8.4% INJ 50MEQ 50 ML VIAL XX ONE
[2022-07-17 14:57] LABS: HEMATOCRIT 43.9 % (42.0-52.0); HEMOGLOBIN 13.8 g/dl (13.5-17.5); MEAN CORPUSCULAR HEMOGLOBIN 29.4 pg (27.0-33.0); MEAN CORPUSCULAR HGB CONC 31.4 g/dl (32.0-36.5); MEAN CORPUSCULAR VOLUME 93.4 fl (80.0-96.0); PLATELET COUNT, AUTOMATED 232 10^3/uL (150-450); WHITE BLOOD COUNT 7.3 10^3/uL (4.0-10.0)
[2022-07-17 16:36] LABS: ALBUMIN 3.7 GM/DL (3.2-5.2); ALT/SGPT 28 U/L (12-78); BILIRUBIN,TOTAL 0.5 MG/DL (0.2-1.0); BLOOD UREA NITROGEN 15 MG/DL (7-18); CALCIUM LEVEL 8.6 MG/DL (8.8-10.2); CARBON DIOXIDE LEVEL 29 MEQ/L (21-32); CHLORIDE LEVEL 104 MEQ/L (98-107); CHOLESTEROL LEVEL 152 MG/DL (<200); CHOLESTEROL RISK RATIO 3.102 (<5); CREATININE FOR GFR 0.76 MG/DL (0.70-1.30); GLOMERULAR FILTRATION RATE > 60.0 (>42); GLUCOSE, FASTING 103 MG/DL (70-100); HDL CHOLESTEROL 49 MG/DL (>40); LDL CHOLESTEROL 86 MG/DL (<100); NON-HDL-C 103 MG/DL; POTASSIUM SERUM 4.4 MEQ/L (3.5-5.1); SODIUM LEVEL 137 MEQ/L (136-145); TOTAL PROTEIN 6.6 GM/DL (6.4-8.2); TRIGLYCERIDES LEVEL 84 MG/DL (<150)
== END ==
LOC: M PLALAB 09:13
PROVIDERS: ATTEND Nurse Practitioner Adult Health
DX: I48.91 Unspecified atrial fibrillation (principal); I10 Essential (primary) hypertension; Z13.220 Encounter for screening for lipoid disorders

== ENCOUNTER → 2022-10-04 | Outpatient (CLI) | payer MEDICARE ==
[2022-10-04 15:33] LABS: HEMATOCRIT 42.8 % (42.0-52.0); HEMOGLOBIN 13.8 g/dl (13.5-17.5); MEAN CORPUSCULAR HEMOGLOBIN 29.6 pg (27.0-33.0); MEAN CORPUSCULAR HGB CONC 32.2 g/dl (32.0-36.5); MEAN CORPUSCULAR VOLUME 91.6 fl (80.0-96.0); PLATELET COUNT, AUTOMATED 214 10^3/uL (150-450); RED BLOOD COUNT 4.67 10^6/uL (4.30-6.10); WHITE BLOOD COUNT 7.5 10^3/uL (4.0-10.0)
[2022-10-04 15:57] LABS: BLOOD UREA NITROGEN 12 MG/DL (9-23); CALCIUM LEVEL 8.8 MG/DL (8.3-10.6); CARBON DIOXIDE LEVEL 26 MMOL/L (20-31); CHLORIDE LEVEL 102 MMOL/L (98-107); CREATININE FOR GFR 0.76 MG/DL (0.70-1.30); GLOMERULAR FILTRATION RATE > 60.0 (>42); GLUCOSE, FASTING 96 MG/DL (74-106); POTASSIUM SERUM 4.9 MMOL/L (3.5-5.1); SODIUM LEVEL 139 MMOL/L (136-145)
== END ==
LOC: M PLALAB 14:04
PROVIDERS: ATTEND Physician Assistant
DX: I50.31 Acute diastolic (congestive) heart failure (principal); J84.10 Pulmonary fibrosis, unspecified

== ENCOUNTER → 2022-10-25 | Outpatient (CLI) | payer MEDICARE ==
[2022-10-25 16:05] LABS: BLOOD UREA NITROGEN 15 MG/DL (9-23); CALCIUM LEVEL 8.5 MG/DL (8.3-10.6); CARBON DIOXIDE LEVEL 28 MMOL/L (20-31); CHLORIDE LEVEL 102 MMOL/L (98-107); CREATININE FOR GFR 0.77 MG/DL (0.70-1.30); GLOMERULAR FILTRATION RATE > 60.0 (>42); GLUCOSE, FASTING 95 MG/DL (74-106); MAGNESIUM LEVEL 1.9 MG/DL (1.8-2.4); POTASSIUM SERUM 4.6 MMOL/L (3.5-5.1); SODIUM LEVEL 136 MMOL/L (136-145)
== END ==
LOC: M PLALAB 13:44
PROVIDERS: ATTEND Physician Assistant
DX: I50.31 Acute diastolic (congestive) heart failure (principal); I48.21 Permanent atrial fibrillation

== ENCOUNTER → 2023-03-03 | Outpatient (CLI) | payer MEDICARE ==
[2023-03-03 15:24] LABS: CHOLESTEROL RISK RATIO 3.66 (<5); HDL CHOLESTEROL 35.7 MG/DL (>40); LDL CHOLESTEROL 78.3 MG/DL (<100); NON-HDL-C 95.3 MG/DL
[2023-03-03 15:27] LABS: THYROID STIMULATING HORMONE 2.03 uIU/ML (0.55-4.78)
== END ==
LOC: M PLALAB 09:55
PROVIDERS: ATTEND Nurse Practitioner Adult Health
DX: I48.91 Unspecified atrial fibrillation (principal); Z13.220 Encounter for screening for lipoid disorders

== ENCOUNTER → 2023-03-03 | Outpatient (CLI) | payer MEDICARE ==
[2023-03-03 14:37] LABS: BLOOD UREA NITROGEN 12 MG/DL (9-23); CALCIUM LEVEL 8.2 MG/DL (8.3-10.6); CARBON DIOXIDE LEVEL 28 MMOL/L (20-31); CHLORIDE LEVEL 107 MMOL/L (98-107); CREATININE FOR GFR 0.74 MG/DL (0.70-1.30); GLOMERULAR FILTRATION RATE > 60.0 (>42); GLUCOSE, FASTING 106 MG/DL (74-106); POTASSIUM SERUM 4.7 MMOL/L (3.5-5.1); SODIUM LEVEL 141 MMOL/L (136-145)
== END ==
LOC: M PLALAB 09:58
PROVIDERS: ATTEND Physician Assistant
DX: I50.32 Chronic diastolic (congestive) heart failure (principal)

== ENCOUNTER → 2023-06-04 | Outpatient (CLI) | payer MEDICARE ==
[2023-06-04 15:11] LABS: HEMATOCRIT 44.7 % (42.0-52.0); MEAN CORPUSCULAR HEMOGLOBIN 30.4 pg (27.0-33.0); MEAN CORPUSCULAR HGB CONC 33.6 g/dl (32.0-36.5); MEAN CORPUSCULAR VOLUME 90.7 fl (80.0-96.0); PLATELET COUNT, AUTOMATED 250 10^3/uL (150-450); RED BLOOD COUNT 4.93 10^6/uL (4.30-6.10); WHITE BLOOD COUNT 8.4 10^3/uL (4.0-10.0)
[2023-06-04 15:13] LABS: BLOOD UREA NITROGEN 14 MG/DL (9-23); CALCIUM LEVEL 8.8 MG/DL (8.3-10.6); CARBON DIOXIDE LEVEL 28 MMOL/L (20-31); CHLORIDE LEVEL 104 MMOL/L (98-107); CREATININE FOR GFR 0.74 MG/DL (0.70-1.30); GLOMERULAR FILTRATION RATE > 60.0 (>42); GLUCOSE, FASTING 100 MG/DL (74-106); MAGNESIUM LEVEL 1.9 MG/DL (1.8-2.4); POTASSIUM SERUM 4.2 MMOL/L (3.5-5.1); SODIUM LEVEL 140 MMOL/L (136-145)
== END ==
LOC: M PLALAB 12:01
PROVIDERS: ATTEND Physician Assistant
DX: I50.32 Chronic diastolic (congestive) heart failure (principal); I48.21 Permanent atrial fibrillation

== ENCOUNTER → 2023-09-12 | Outpatient (CLI) | payer MEDICARE ==
[2023-09-12 14:02] LABS: HEMATOCRIT 43.8 % (42.0-52.0); HEMOGLOBIN 14.4 g/dl (13.5-17.5); MEAN CORPUSCULAR HEMOGLOBIN 30.3 pg (27.0-33.0); MEAN CORPUSCULAR HGB CONC 32.9 g/dl (32.0-36.5); MEAN CORPUSCULAR VOLUME 92.2 fl (80.0-96.0); PLATELET COUNT, AUTOMATED 229 10^3/uL (150-450); RED BLOOD COUNT 4.75 10^6/uL (4.30-6.10); WHITE BLOOD COUNT 7.6 10^3/uL (4.0-10.0)
[2023-09-12 14:13] LABS: ALBUMIN 3.7 G/DL (3.2-5.2); ALKALINE PHOSPHATASE 57 U/L (46-116); ALT/SGPT 30 U/L (7.0-40); AST/SGOT 19 U/L (<34); BILIRUBIN,TOTAL 0.5 MG/DL (0.3-1.2); BLOOD UREA NITROGEN 15 MG/DL (9-23); CALCIUM LEVEL 9.2 MG/DL (8.3-10.6); CARBON DIOXIDE LEVEL 28 MMOL/L (20-31); CHLORIDE LEVEL 104 MMOL/L (98-107); CHOLESTEROL LEVEL 147 MG/DL (<200); CHOLESTEROL RISK RATIO 4.32 (<5); CREATININE FOR GFR 0.68 MG/DL (0.70-1.30); GLOMERULAR FILTRATION RATE > 60.0 (>42); GLUCOSE, FASTING 145 MG/DL (74-106); LDL CHOLESTEROL 89.8 MG/DL (<100); POTASSIUM SERUM 4.4 MMOL/L (3.5-5.1); SODIUM LEVEL 138 MMOL/L (136-145); THYROID STIMULATING HORMONE 1.885 uIU/ML (0.55-4.78); TOTAL PROTEIN 6.4 G/DL (5.7-8.2); TRIGLYCERIDES LEVEL 116 MG/DL (<150)
== END ==
LOC: M PLALAB 10:12
PROVIDERS: ATTEND Nurse Practitioner Adult Health
DX: Z13.220 Encounter for screening for lipoid disorders (principal); I48.91 Unspecified atrial fibrillation; I10 Essential (primary) hypertension; J44.9 Chronic obstructive pulmonary disease, unspecified

== ENCOUNTER → 2023-10-07 | Outpatient (CLI) | payer MEDICARE ==
[2023-10-07 18:01] LABS: BLOOD UREA NITROGEN 16 MG/DL (9-23); CALCIUM LEVEL 8.7 MG/DL (8.3-10.6); CARBON DIOXIDE LEVEL 26 MMOL/L (20-31); CHLORIDE LEVEL 103 MMOL/L (98-107); CREATININE FOR GFR 0.84 MG/DL (0.70-1.30); GLOMERULAR FILTRATION RATE > 60.0 (>42); GLUCOSE, FASTING 95 MG/DL (74-106); POTASSIUM SERUM 4.3 MMOL/L (3.5-5.1); SODIUM LEVEL 135 MMOL/L (136-145)
== END ==
LOC: M PLALAB 15:36
PROVIDERS: ATTEND Physician Assistant
DX: I50.32 Chronic diastolic (congestive) heart failure (principal)

== ENCOUNTER → 2023-10-07 | Outpatient (CLI) | payer MEDICARE ==
[2023-10-07 17:29] LABS: APPEARANCE, URINE CLEAR (CLEAR); BACTERIA, URINE AUTO NEGATIVE (NEGATIVE); BILIRUBIN, URINE AUTO NEGATIVE (NEGATIVE); BLOOD, URINE BLOOD NEGATIVE (NEGATIVE); COLOR, URINE YELLOW (YELLOW); GLUCOSE, URINE (UA) AUTO NEGATIVE (NEGATIVE); KETONE, URINE AUTO NEGATIVE (NEGATIVE); LEUKOCYTE ESTERASE, URINE AUTO NEGATIVE (NEGATIVE); NITRITE, URINE AUTO NEGATIVE (NEGATIVE); PROTEIN, URINE AUTO NEGATIVE (NEGATIVE); RBC, URINE AUTO 1 /HPF (0-3); SPECIFIC GRAVITY URINE AUTO 1.013 (1.002-1.035); SQUAMOUS EPITHELIAL CELL UR AU 0 /HPF (0-6); UROBILINOGEN, URINE AUTO 0.2 mg/dL (0.0-2.0); WBC, URINE AUTO 1 /HPF (0-3)
[2023-10-07 18:14] LABS: HEMOGLOBIN A1c 5.7 % (4.0-6.0)
== END ==
LOC: M PLALAB 15:32
PROVIDERS: ATTEND Nurse Practitioner Adult Health
DX: R73.9 Hyperglycemia, unspecified (principal); R35.0 Frequency of micturition

== ENCOUNTER → 2023-11-20 | Outpatient (CLI) | payer MEDICARE | LOC: M SOG 08:52 | PROVIDERS: ATTEND Physician Assistant | DX: M85.841 Other specified disorders of bone density and structure, right hand (principal); M19.041 Primary osteoarthritis, right hand ==

== ENCOUNTER → 2023-12-23 | Outpatient (CLI) | payer MEDICARE ==
[2023-12-23 15:34] LABS: HEMATOCRIT 42.4 % (42.0-52.0); HEMOGLOBIN 14.1 g/dl (13.5-17.5); MEAN CORPUSCULAR HEMOGLOBIN 30.7 pg (27.0-33.0); MEAN CORPUSCULAR HGB CONC 33.3 g/dl (32.0-36.5); MEAN CORPUSCULAR VOLUME 92.2 fl (80.0-96.0); PLATELET COUNT, AUTOMATED 227 10^3/uL (150-450)
[2023-12-23 15:56] LABS: ALBUMIN 3.5 G/DL (3.2-5.2); ALKALINE PHOSPHATASE 54 U/L (46-116); ALT/SGPT 22 U/L (7.0-40); AST/SGOT 22 U/L (<34); BILIRUBIN,TOTAL 0.4 MG/DL (0.3-1.2); BLOOD UREA NITROGEN 19 MG/DL (9-23); CARBON DIOXIDE LEVEL 27 MMOL/L (20-31); CHLORIDE LEVEL 104 MMOL/L (98-107); CREATININE FOR GFR 0.79 MG/DL (0.70-1.30); GLOMERULAR FILTRATION RATE > 60.0 (>42); GLUCOSE, FASTING 110 MG/DL (74-106); POTASSIUM SERUM 4.2 MMOL/L (3.5-5.1); SODIUM LEVEL 136 MMOL/L (136-145); TOTAL PROTEIN 6.3 G/DL (5.7-8.2)
[2023-12-24 16:06] LABS: CALCIUM LEVEL 8.8 MG/DL (8.3-10.6)
== END ==
LOC: M PLALAB 14:08
PROVIDERS: ATTEND Nurse Practitioner Adult Health
DX: I48.91 Unspecified atrial fibrillation (principal); I50.32 Chronic diastolic (congestive) heart failure

== ENCOUNTER 2024-02-04 08:50 | Inpatient (IN) | payer MEDICARE ==
[~2024-02-04] VITALS: Ht 165.1 cm; Wt 98.3 kg
[2024-02-04] MEDS: LORazepam 2 MG/ML 1ML VIAL IM ONE (09:43)
[2024-02-04 10:24] LABS: BASO # 0.1 10^3/uL (0.0-0.2); BASO % 0.5 % (0.0-1.0); EOS # 0.2 10^3/uL (0.0-0.5); EOS % 1.7 % (0.0-3.0); HEMATOCRIT 42.3 % (42.0-52.0); LYMPH # 2.2 10^3/uL (1.5-5.0); LYMPH % 19.4 % (24.0-44.0); MEAN CORPUSCULAR HEMOGLOBIN 30.6 pg (27.0-33.0); MEAN CORPUSCULAR HGB CONC 33.1 g/dl (32.0-36.5); MEAN CORPUSCULAR VOLUME 92.6 fl (80.0-96.0); MONO # 1.1 10^3/uL (0.0-0.8); MONO % 9.6 % (2.0-8.0); NEUTROPHILS # 7.9 10^3/uL (1.5-8.5); NEUTROPHILS % 68.5 % (36.0-66.0); PLATELET COUNT, AUTOMATED 262 10^3/uL (150-450); RED BLOOD COUNT 4.57 10^6/uL (4.30-6.10); WHITE BLOOD COUNT 11.6 10^3/uL (4.0-10.0)
[2024-02-04 10:42] LABS: ABG BASE EXCESS -1.3 (-2.0-2.0); ABG O2 SATURATION 93.9 % (95.0-99.0); ABG PARTIAL PRESSURE CO2 32.7 mmHg (35.0-45.0); ABG PARTIAL PRESSURE O2 72.5 mmHg (75.0-100.0); ABG STANDARD HCO3 23.3 MMOL/L. (22.0-26.0); ABG pH (ARTERIAL) 7.445 UNITS (7.350-7.450)
[2024-02-04 10:56] LABS: ETHYL ALCOHOL (ETHANOL) < 0.003 % (0.000-0.010)
[2024-02-04 10:58] LABS: CPK CREATINE PHOSPHOKINASE 74 U/L (46-171); SALICYLATE LEVEL < 3.0 MG/DL (<30)
[2024-02-04 10:59] LABS: DIGOXIN LEVEL 0.4 NG/ML (0.8-2.0)
[2024-02-04 11:02] LABS: ALBUMIN 3.6 G/DL (3.2-5.2); ALKALINE PHOSPHATASE 62 U/L (46-116); ALT/SGPT 35 U/L (7.0-40); AST/SGOT 23 U/L (<34); BILIRUBIN,DIRECT 0.4 MG/DL (<0.4); BLOOD UREA NITROGEN 16 MG/DL (9-23); CALCIUM LEVEL 8.9 MG/DL (8.3-10.6); CARBON DIOXIDE LEVEL 26 MMOL/L (20-31); CHLORIDE LEVEL 103 MMOL/L (98-107); CK-MB VALUE MASS 1.4 NG/ML (<3.6); CREATININE FOR GFR 0.69 MG/DL (0.70-1.30); GLOMERULAR FILTRATION RATE > 60.0 (>42); GLUCOSE, FASTING 144 MG/DL (74-106); MB/CK RELATIVE INDEX 1.89 (< OR =4); POTASSIUM SERUM 4.4 MMOL/L (3.5-5.1); SODIUM LEVEL 136 MMOL/L (136-145); THYROID STIMULATING HORMONE 1.338 uIU/ML (0.55-4.78); TOTAL PROTEIN 6.3 G/DL (5.7-8.2)
[2024-02-04] MEDS: NS 500 ML IV ONE ×2 (11:04→12:56)
[2024-02-04 11:28] LABS: INR 1.28; PARTIAL THROMBOPLASTIN TIME 28.1 SECONDS (24.8-34.2); PROTHROMBIN TIME 15.6 SECONDS (12.5-14.5)
[2024-02-04 11:35] LABS: CK-MB VALUE MASS 1.3 NG/ML (<3.6); MB/CK RELATIVE INDEX 1.46 (< OR =4)
[2024-02-04 12:37] LABS: AMPHETAMINES LEVEL URINE NEGATIVE (NEGATIVE); BARBITURATES URINE NEGATIVE (NEGATIVE); BENZODIAZEPINES URINE NEGATIVE (NEGATIVE); CANNABINOIDS URINE NEGATIVE (NEGATIVE); COCAINE METABOLITE URINE NEGATIVE (NEGATIVE); METHADONE URINE NEGATIVE (NEGATIVE); OPIATES URINE NEGATIVE (NEGATIVE); PHENCYCLIDINE URINE NEGATIVE (NEGATIVE)
[2024-02-04] MEDS ORDERED: MATZ240T PO (13:28)
[2024-02-04] MEDS ORDERED: BUPR75TA5 PO (13:28)
[2024-02-04] MEDS ORDERED: VENTAER INH (13:28)
[2024-02-04] MEDS ORDERED: ADV250INH INH (13:28)
[2024-02-04] MEDS ORDERED: LISI20TA33 PO (13:28)
[2024-02-04] MEDS ORDERED: SPIR-10 PO (13:28)
[2024-02-04] MEDS ORDERED: VITA100T14 PO (13:28)
[2024-02-04] MEDS ORDERED: MULTTAB61 PO (13:28)
[2024-02-04] MEDS ORDERED: BUSP10TA PO (13:28)
[2024-02-04] MEDS ORDERED: OMEGCAP4 PO (13:28)
[2024-02-04] MEDS ORDERED: PRES10CA2 PO (13:28)
[2024-02-04] MEDS ORDERED: TORS20TA2 PO (13:28)
[2024-02-04] MEDS ORDERED: HOME MED LIST COMPLETE! XX SCH (13:35)
[2024-02-04] MEDS ORDERED: MOM 30ML SUSPENSION UDC PO PRN (16:25)
[2024-02-04] MEDS: FUROSEMIDE 100MG/10ML VIAL IV ONE (17:24)
[2024-02-04] MEDS: DIGOXIN 0.125 MG TAB PO SCH (18:11)
[2024-02-04] MEDS: dilTIAZem 120MG **CD** CAPSULE PO SCH (18:11)
[2024-02-04] MEDS: IPRATROPIUM 0.5MG/ALBUTEROL 2.5MG INH SOL UD 3ML (DUONEB) NEB SCH (19:53)
[2024-02-04] MEDS: MYCOLOG CREAM 15GM (NYSTATIN/TRIAMCINOLONE) TOP SCH (21:00)
[2024-02-04] MEDS: traMADol 50 MG TAB PO SCH (21:13)
[2024-02-04] MEDS: GABAPENTIN 300 MG CAP PO SCH (21:13)
[2024-02-04] MEDS: DOCUSATE SODIUM 100MG CAPSULE PO SCH (21:13)
[2024-02-04] MEDS: APIXABAN 5 MG TAB (ELIQUIS) PO SCH (21:13)
[2024-02-04 21:15] VITALS: TEMP 98.6; O2SAT 96
[2024-02-04] MEDS: HALOPERIDOL LACTATE 5MG/ML VIAL IM PRN (22:10)
[2024-02-04] MEDS: traZODone 50 MG TAB PO SCH (22:46)
[2024-02-05 05:55] VITALS: BP 155/83; TEMP 98.6; O2SAT 94
[2024-02-05 06:19] LABS: BASO # 0.1 10^3/uL (0.0-0.2); BASO % 0.4 % (0.0-1.0); EOS # 0.1 10^3/uL (0.0-0.5); EOS % 1.1 % (0.0-3.0); HEMATOCRIT 42.6 % (42.0-52.0); HEMOGLOBIN 14.4 g/dl (13.5-17.5); LYMPH # 1.2 10^3/uL (1.5-5.0); LYMPH % 10.2 % (24.0-44.0); MEAN CORPUSCULAR HEMOGLOBIN 30.3 pg (27.0-33.0); MEAN CORPUSCULAR HGB CONC 33.8 g/dl (32.0-36.5); MEAN CORPUSCULAR VOLUME 89.7 fl (80.0-96.0); MONO # 0.9 10^3/uL (0.0-0.8); MONO % 7.9 % (2.0-8.0); NEUTROPHILS # 9.1 10^3/uL (1.5-8.5); PLATELET COUNT, AUTOMATED 260 10^3/uL (150-450); RED BLOOD COUNT 4.75 10^6/uL (4.30-6.10); WHITE BLOOD COUNT 11.3 10^3/uL (4.0-10.0)
[2024-02-05 06:47] LABS: BLOOD UREA NITROGEN 14 MG/DL (9-23); CALCIUM LEVEL 8.8 MG/DL (8.3-10.6); CARBON DIOXIDE LEVEL 22 MMOL/L (20-31); CHLORIDE LEVEL 102 MMOL/L (98-107); CREATININE FOR GFR 0.68 MG/DL (0.70-1.30); GLOMERULAR FILTRATION RATE > 60.0 (>42); GLUCOSE, FASTING 117 MG/DL (74-106); SODIUM LEVEL 133 MMOL/L (136-145)
[2024-02-05] MEDS: ADVAIR HFA 115/21MCG INHALER INH SCH (07:17)
[2024-02-05] MEDS ORDERED: buPROPion 75 MG TAB PO SCH (09:00)
[2024-02-05] MEDS: SPIRONOLACTONE 12.5MG PER 1/2 TABLET PO SCH (09:29)
[2024-02-05] MEDS: TAMSULOSIN 0.4 MG CAP PO SCH (09:30)
[2024-02-05] MEDS: QUEtiapine FUMARATE 50MG TAB PO SCH ×2 (09:31→20:47)
[2024-02-05] MEDS: TORSEMIDE 20 MG TAB PO SCH (09:31)
[2024-02-05] MEDS: BACLOFEN 10 MG TAB PO SCH (09:31)
[2024-02-05] MEDS: QUEtiapine FUMARATE 50MG TAB PO ONE (16:34)
[2024-02-05 19:37] VITALS: BP 101/54; TEMP 97.7; O2SAT 94
[2024-02-05] MEDS: busPIRone 5 MG TAB PO SCH (20:47)
[2024-02-06] VITALS (19 sets, daily range): BP systolic 100–150; BP diastolic 62–81; TEMP 98.1–103.3; O2SAT 93–99
[2024-02-06 08:39] LABS: BASO % 0.3 % (0.0-1.0); EOS # 0.1 10^3/uL (0.0-0.5); EOS % 0.5 % (0.0-3.0); LYMPH # 0.7 10^3/uL (1.5-5.0); MEAN CORPUSCULAR HEMOGLOBIN 30.2 pg (27.0-33.0); MEAN CORPUSCULAR HGB CONC 33.3 g/dl (32.0-36.5); MEAN CORPUSCULAR VOLUME 90.7 fl (80.0-96.0); MONO % 7.8 % (2.0-8.0); NEUTROPHILS # 11.4 10^3/uL (1.5-8.5); PLATELET COUNT, AUTOMATED 240 10^3/uL (150-450); RED BLOOD COUNT 4.96 10^6/uL (4.30-6.10); WHITE BLOOD COUNT 13.3 10^3/uL (4.0-10.0)
[2024-02-06 09:03] LABS: BLOOD UREA NITROGEN 19 MG/DL (9-23); CALCIUM LEVEL 8.8 MG/DL (8.3-10.6); CARBON DIOXIDE LEVEL 28 MMOL/L (20-31); CHLORIDE LEVEL 102 MMOL/L (98-107); CREATININE FOR GFR 0.81 MG/DL (0.70-1.30); GLOMERULAR FILTRATION RATE > 60.0 (>42); GLUCOSE, FASTING 141 MG/DL (74-106); POTASSIUM SERUM 4.3 MMOL/L (3.5-5.1); SODIUM LEVEL 136 MMOL/L (136-145)
[2024-02-06] MEDS: NS 500 ML IV ONE (09:15)
[2024-02-06 09:32] LABS: ABG HCO3 23.2 MMOL/L (22.0-26.0); ABG O2 SATURATION 91.9 % (95.0-99.0); ABG PARTIAL PRESSURE CO2 30.5 mmHg (35.0-45.0); ABG PARTIAL PRESSURE O2 60.4 mmHg (75.0-100.0); ABG STANDARD HCO3 25.2 MMOL/L. (22.0-26.0); ABG TOTAL CO2 24.1 MMOL/L (23.0-31.0); ABG pH (ARTERIAL) 7.499 UNITS (7.350-7.450)
[2024-02-06] MEDS: DIGOXIN INJ 0.5 MG/2 ML AMP IV ONE ×2 (16:07→21:22)
[2024-02-06] MEDS: NS 1,000 ML IV ONE ×2 (16:20→16:56)
[2024-02-06] MEDS: PIPERACILLIN/TAZOBACTAM SOD 3.375 GM in D5W MINI-BAG PLUS 50 ML IV SCH (16:21)
[2024-02-06] MEDS: IPRATROPIUM 0.02% SOLN 0.5MG 2.5ML NEB INH SCH (16:29)
[2024-02-06] MEDS: LEVALBUTEROL 1.25MG 0.5ML CONCENTRATE NEB INH SCH (16:29)
[2024-02-06 16:40] LABS: ABG BASE EXCESS -0.1 (-2.0-2.0); ABG HCO3 22.9 MMOL/L (22.0-26.0); ABG O2 SATURATION 98.1 % (95.0-99.0); ABG PARTIAL PRESSURE CO2 32.6 mmHg (35.0-45.0); ABG PARTIAL PRESSURE O2 127.3 mmHg (75.0-100.0); ABG STANDARD HCO3 24.5 MMOL/L. (22.0-26.0); ABG TOTAL CO2 23.9 MMOL/L (23.0-31.0); ABG pH (ARTERIAL) 7.464 UNITS (7.350-7.450)
[2024-02-06] MEDS ORDERED: VANCOMYCIN HCL 1,000 MG, VIAL MATE ADAPTER 1 EACH in NS 250 ML IV SCH (16:40)
[2024-02-06] MEDS: ACETAMINOPHEN *IV* 1,000 MG in IV 1 EA IV PRN (16:56)
[2024-02-06] MEDS ORDERED: methylPREDNISolone 40MG 1ML VIAL IV SCH (17:00)
[2024-02-06] MEDS: VANCOMYCIN HCL 1,000 MG, VIAL MATE ADAPTER 1 EACH in D5W 250 ML IV ONE ×2 (17:16→18:24)
[2024-02-06 17:23] LABS: BASO % 0.3 % (0.0-1.0); EOS % 0.1 % (0.0-3.0); HEMATOCRIT 40.6 % (42.0-52.0); HEMOGLOBIN 13.6 g/dl (13.5-17.5); LYMPH # 0.7 10^3/uL (1.5-5.0); LYMPH % 5.3 % (24.0-44.0); MEAN CORPUSCULAR HEMOGLOBIN 30.8 pg (27.0-33.0); MEAN CORPUSCULAR HGB CONC 33.5 g/dl (32.0-36.5); MEAN CORPUSCULAR VOLUME 92.1 fl (80.0-96.0); MONO # 1.2 10^3/uL (0.0-0.8); NEUTROPHILS # 10.9 10^3/uL (1.5-8.5); PLATELET COUNT, AUTOMATED 241 10^3/uL (150-450); RED BLOOD COUNT 4.41 10^6/uL (4.30-6.10); WHITE BLOOD COUNT 12.8 10^3/uL (4.0-10.0)
[2024-02-06] MEDS: FORMOTEROL FUMARATE 20 MCG/2 ML INHALATION SOLUTION (PERFOROMIST) INH SCH (20:17)
[2024-02-06] MEDS: BUDESONIDE 0.5 MG/2 ML INHALATION SUSPENSION NEB SCH (20:21)
[2024-02-06] MEDS: dilTIAZem 25MG/5ML VIAL IV STA (23:19)
[2024-02-07] VITALS (32 sets, daily range): BP systolic 121–143; BP diastolic 57–83; TEMP 98–101; O2SAT 91–98
[2024-02-07] MEDS: dilTIAZem 25MG/5ML VIAL IV STA (00:10)
[2024-02-07] MEDS: VANCOMYCIN HCL 750 MG, VIAL MATE ADAPTER 1 EACH in D5W 250 ML IV SCH (01:12)
[2024-02-07] MEDS: VANCOMYCIN HCL 500 MG in D5W MINI-BAG PLUS 100 ML IV SCH (02:29)
[2024-02-07 05:59] LABS: BASO # 0.1 10^3/uL (0.0-0.2); BASO % 0.4 % (0.0-1.0); EOS # 0.1 10^3/uL (0.0-0.5); HEMATOCRIT 42.3 % (42.0-52.0); HEMOGLOBIN 13.9 g/dl (13.5-17.5); LYMPH # 0.7 10^3/uL (1.5-5.0); LYMPH % 5.3 % (24.0-44.0); MEAN CORPUSCULAR HEMOGLOBIN 30.8 pg (27.0-33.0); MEAN CORPUSCULAR HGB CONC 32.9 g/dl (32.0-36.5); MEAN CORPUSCULAR VOLUME 93.8 fl (80.0-96.0); MONO # 1.1 10^3/uL (0.0-0.8); NEUTROPHILS # 10.2 10^3/uL (1.5-8.5); PLATELET COUNT, AUTOMATED 235 10^3/uL (150-450); RED BLOOD COUNT 4.51 10^6/uL (4.30-6.10); WHITE BLOOD COUNT 12.2 10^3/uL (4.0-10.0)
[2024-02-07 06:33] LABS: BLOOD UREA NITROGEN 14 MG/DL (9-23); CALCIUM LEVEL 8.1 MG/DL (8.3-10.6); CARBON DIOXIDE LEVEL 27 MMOL/L (20-31); CHLORIDE LEVEL 106 MMOL/L (98-107); CREATININE FOR GFR 0.71 MG/DL (0.70-1.30); GLOMERULAR FILTRATION RATE > 60.0 (>42); GLUCOSE, FASTING 128 MG/DL (74-106); POTASSIUM SERUM 4.4 MMOL/L (3.5-5.1); SODIUM LEVEL 140 MMOL/L (136-145)
[2024-02-07 08:23] LABS: MAGNESIUM LEVEL 2.2 MG/DL (1.8-2.4)
[2024-02-07] MEDS: dilTIAZem 60 MG TAB PO SCH (09:36)
[2024-02-08] VITALS (26 sets, daily range): BP systolic 107–147; BP diastolic 58–88; TEMP 96.8–100.6; O2SAT 92–97
[2024-02-08] MEDS: OLANZapine INTRAMUSCULAR 10MG VIAL IM PRN (01:50)
[2024-02-08] MEDS: ACETAMINOPHEN *IV* 500 MG in IV 1 EA IV ONE (05:55)
[2024-02-08 08:14] LABS: BASO # 0.1 10^3/uL (0.0-0.2); BASO % 0.5 % (0.0-1.0); EOS # 0.6 10^3/uL (0.0-0.5); EOS % 6.2 % (0.0-3.0); HEMATOCRIT 41.4 % (42.0-52.0); HEMOGLOBIN 13.8 g/dl (13.5-17.5); LYMPH # 0.6 10^3/uL (1.5-5.0); LYMPH % 5.7 % (24.0-44.0); MEAN CORPUSCULAR HEMOGLOBIN 30.2 pg (27.0-33.0); MEAN CORPUSCULAR HGB CONC 33.3 g/dl (32.0-36.5); MEAN CORPUSCULAR VOLUME 90.6 fl (80.0-96.0); MONO # 0.6 10^3/uL (0.0-0.8); MONO % 6.2 % (2.0-8.0); NEUTROPHILS # 8.3 10^3/uL (1.5-8.5); PLATELET COUNT, AUTOMATED 240 10^3/uL (150-450); RED BLOOD COUNT 4.57 10^6/uL (4.30-6.10); WHITE BLOOD COUNT 10.2 10^3/uL (4.0-10.0)
[2024-02-08 08:39] LABS: BLOOD UREA NITROGEN 17 MG/DL (9-23); CALCIUM LEVEL 8.3 MG/DL (8.3-10.6); CARBON DIOXIDE LEVEL 25 MMOL/L (20-31); CHLORIDE LEVEL 107 MMOL/L (98-107); CREATININE FOR GFR 0.68 MG/DL (0.70-1.30); GLOMERULAR FILTRATION RATE > 60.0 (>42); GLUCOSE, FASTING 118 MG/DL (74-106); POTASSIUM SERUM 4.1 MMOL/L (3.5-5.1); SODIUM LEVEL 140 MMOL/L (136-145)
[2024-02-08] MEDS: METOPROLOL 5 MG/5 ML VIAL IV SCH (12:22)
[2024-02-08] MEDS: LORazepam 2 MG/ML 1ML VIAL IM SCH (13:53)
[2024-02-08] MEDS: OLANZapine INTRAMUSCULAR 10MG VIAL IM SCH (18:12)
[2024-02-08] MEDS ORDERED: OLANZapine INTRAMUSCULAR 10MG VIAL IM SCH (21:00)
[2024-02-09 05:24] VITALS: BP 123/68; TEMP 96.7; O2SAT 96
[2024-02-09 05:56] LABS: BASO % 0.6 % (0.0-1.0); EOS # 0.6 10^3/uL (0.0-0.5); EOS % 9.8 % (0.0-3.0); HEMATOCRIT 45.9 % (42.0-52.0); HEMOGLOBIN 14.7 g/dl (13.5-17.5); LYMPH # 0.8 10^3/uL (1.5-5.0); MEAN CORPUSCULAR HEMOGLOBIN 30.1 pg (27.0-33.0); MEAN CORPUSCULAR VOLUME 93.9 fl (80.0-96.0); MONO # 0.5 10^3/uL (0.0-0.8); MONO % 7.8 % (2.0-8.0); NEUTROPHILS # 4.3 10^3/uL (1.5-8.5); NEUTROPHILS % 68.6 % (36.0-66.0); PLATELET COUNT, AUTOMATED 219 10^3/uL (150-450); RED BLOOD COUNT 4.89 10^6/uL (4.30-6.10); WHITE BLOOD COUNT 6.3 10^3/uL (4.0-10.0)
[2024-02-09 06:19] LABS: BLOOD UREA NITROGEN 19 MG/DL (9-23); CALCIUM LEVEL 8.4 MG/DL (8.3-10.6); CARBON DIOXIDE LEVEL 22 MMOL/L (20-31); CHLORIDE LEVEL 108 MMOL/L (98-107); CREATININE FOR GFR 0.68 MG/DL (0.70-1.30); GLOMERULAR FILTRATION RATE > 60.0 (>42); GLUCOSE, FASTING 92 MG/DL (74-106); POTASSIUM SERUM 4.5 MMOL/L (3.5-5.1); SODIUM LEVEL 139 MMOL/L (136-145)
[2024-02-09 07:33] VITALS: BP 130/62; TEMP 98.1; O2SAT 95
[2024-02-09 12:00] VITALS: BP 113/54; TEMP 98.8; O2SAT 96
[2024-02-09] MEDS: dilTIAZem 30 MG TAB PO SCH (12:00)
[2024-02-09 16:00] VITALS: BP 126/60; TEMP 97.4; O2SAT 94
[2024-02-09 16:59] LABS: PROCALCITONIN 0.24 ng/ml
[2024-02-09 19:06] VITALS: BP 129/60; TEMP 98; O2SAT 96
[2024-02-09] MEDS: QUEtiapine FUMARATE 25 MG TAB PO SCH (19:41)
[2024-02-09] MEDS: traMADol 50 MG TAB PO SCH (19:41)
[2024-02-09] MEDS: LORazepam 2 MG/ML 1ML VIAL IM PRN (20:44)
[2024-02-09 23:43] VITALS: BP 111/66; TEMP 97.2; O2SAT 99
[2024-02-10] VITALS (14 sets, daily range): BP systolic 118–143; BP diastolic 64–75; TEMP 97–97.9; O2SAT 92–99
[2024-02-10 05:29] LABS: BASO % 0.4 % (0.0-1.0); EOS # 0.7 10^3/uL (0.0-0.5); EOS % 11.4 % (0.0-3.0); HEMATOCRIT 40.4 % (42.0-52.0); HEMOGLOBIN 13.2 g/dl (13.5-17.5); LYMPH # 0.8 10^3/uL (1.5-5.0); LYMPH % 13.7 % (24.0-44.0); MEAN CORPUSCULAR HEMOGLOBIN 29.9 pg (27.0-33.0); MEAN CORPUSCULAR HGB CONC 32.7 g/dl (32.0-36.5); MEAN CORPUSCULAR VOLUME 91.4 fl (80.0-96.0); MONO # 0.5 10^3/uL (0.0-0.8); MONO % 7.9 % (2.0-8.0); NEUTROPHILS # 3.8 10^3/uL (1.5-8.5); NEUTROPHILS % 66.4 % (36.0-66.0); PLATELET COUNT, AUTOMATED 234 10^3/uL (150-450); RED BLOOD COUNT 4.42 10^6/uL (4.30-6.10); WHITE BLOOD COUNT 5.7 10^3/uL (4.0-10.0)
[2024-02-10 05:53] LABS: BLOOD UREA NITROGEN 18 MG/DL (9-23); CALCIUM LEVEL 8.2 MG/DL (8.3-10.6); CARBON DIOXIDE LEVEL 24 MMOL/L (20-31); CHLORIDE LEVEL 110 MMOL/L (98-107); CREATININE FOR GFR 0.74 MG/DL (0.70-1.30); GLOMERULAR FILTRATION RATE > 60.0 (>42); GLUCOSE, FASTING 103 MG/DL (74-106); POTASSIUM SERUM 3.8 MMOL/L (3.5-5.1); SODIUM LEVEL 143 MMOL/L (136-145)
[2024-02-10] MEDS: OLANZapine INTRAMUSCULAR 10MG VIAL IM PRN (06:09)
[2024-02-10 08:00] LABS: ALBUMIN 2.5 G/DL (3.2-5.2)
[2024-02-10] MEDS ORDERED: LORazepam 2 MG/ML 1ML VIAL IV STA (19:59)
[2024-02-10] MEDS: LORazepam 2 MG/ML 1ML VIAL IM STA ×2 (20:10→20:50)
[2024-02-10] MEDS: diphenhydrAMINE 50MG/ML VIAL IM STA (20:31)
[2024-02-10] MEDS ORDERED: diphenhydrAMINE 50MG/ML VIAL IV STA (20:42)
[2024-02-10] MEDS: HALOPERIDOL LACTATE 5MG/ML VIAL IM STA (21:15)
[2024-02-11] VITALS (11 sets, daily range): BP systolic 107–145; BP diastolic 59–97; TEMP 97.3–98.1; O2SAT 93–98
[2024-02-11] MEDS: ACETAMINOPHEN TAB 650MG DOSE (2X325MG) PO PRN (03:04)
[2024-02-11 06:45] LABS: BASO % 0.5 % (0.0-1.0); EOS # 0.6 10^3/uL (0.0-0.5); EOS % 10.4 % (0.0-3.0); HEMATOCRIT 41.3 % (42.0-52.0); HEMOGLOBIN 13.8 g/dl (13.5-17.5); LYMPH # 0.8 10^3/uL (1.5-5.0); LYMPH % 13.8 % (24.0-44.0); MEAN CORPUSCULAR HEMOGLOBIN 30.7 pg (27.0-33.0); MEAN CORPUSCULAR HGB CONC 33.4 g/dl (32.0-36.5); MONO # 0.5 10^3/uL (0.0-0.8); NEUTROPHILS # 3.9 10^3/uL (1.5-8.5); NEUTROPHILS % 66.8 % (36.0-66.0); PLATELET COUNT, AUTOMATED 232 10^3/uL (150-450); RED BLOOD COUNT 4.49 10^6/uL (4.30-6.10); WHITE BLOOD COUNT 5.9 10^3/uL (4.0-10.0)
[2024-02-11 07:12] LABS: BLOOD UREA NITROGEN 13 MG/DL (9-23); CALCIUM LEVEL 8.3 MG/DL (8.3-10.6); CARBON DIOXIDE LEVEL 26 MMOL/L (20-31); CHLORIDE LEVEL 108 MMOL/L (98-107); GLOMERULAR FILTRATION RATE > 60.0 (>42); GLUCOSE, FASTING 128 MG/DL (74-106); POTASSIUM SERUM 4.3 MMOL/L (3.5-5.1); SODIUM LEVEL 140 MMOL/L (136-145)
[2024-02-11] MEDS: LORazepam 2 MG/ML 1ML VIAL IV ONE (16:56)
[2024-02-11] MEDS: HALOPERIDOL LACTATE 5MG/ML VIAL IM ONE (18:07)
[2024-02-11] MEDS: BREXPIPRAZOLE 0.5MG TABLET (REXULTI) PO SCH (19:45)
[2024-02-11] MEDS: OLANZapine 2.5MG TABLET PO SCH (19:45)
[2024-02-12 07:00] LABS: HEMATOCRIT 41.1 % (42.0-52.0); MEAN CORPUSCULAR HEMOGLOBIN 30.8 pg (27.0-33.0); MEAN CORPUSCULAR HGB CONC 34.1 g/dl (32.0-36.5); MEAN CORPUSCULAR VOLUME 90.3 fl (80.0-96.0); PLATELET COUNT, AUTOMATED 237 10^3/uL (150-450); RED BLOOD COUNT 4.55 10^6/uL (4.30-6.10)
[2024-02-12 07:28] LABS: ALBUMIN 1.7 G/DL (3.2-5.2); ALKALINE PHOSPHATASE 54 U/L (46-116); ALT/SGPT 71 U/L (7.0-40); AST/SGOT 54 U/L (<34); BILIRUBIN,TOTAL 0.8 MG/DL (0.3-1.2); BLOOD UREA NITROGEN 11 MG/DL (9-23); CALCIUM LEVEL 8.3 MG/DL (8.3-10.6); CARBON DIOXIDE LEVEL 23 MMOL/L (20-31); CHLORIDE LEVEL 108 MMOL/L (98-107); CREATININE FOR GFR 0.68 MG/DL (0.70-1.30); GLOMERULAR FILTRATION RATE > 60.0 (>42); GLUCOSE, FASTING 118 MG/DL (74-106); POTASSIUM SERUM 3.9 MMOL/L (3.5-5.1); SODIUM LEVEL 141 MMOL/L (136-145); TOTAL PROTEIN 5.6 G/DL (5.7-8.2)
[2024-02-12 07:49] VITALS: BP 152/68; TEMP 97.6; O2SAT 99
[2024-02-12 16:01] VITALS: BP 153/75; TEMP 97.1; O2SAT 96
[2024-02-13 00:32] VITALS: BP 109/59; TEMP 97.1; O2SAT 90
[2024-02-13 07:13] LABS: HEMATOCRIT 40.7 % (42.0-52.0); HEMOGLOBIN 13.6 g/dl (13.5-17.5); MEAN CORPUSCULAR HEMOGLOBIN 30.8 pg (27.0-33.0); MEAN CORPUSCULAR HGB CONC 33.4 g/dl (32.0-36.5); MEAN CORPUSCULAR VOLUME 92.1 fl (80.0-96.0); PLATELET COUNT, AUTOMATED 258 10^3/uL (150-450); RED BLOOD COUNT 4.42 10^6/uL (4.30-6.10); WHITE BLOOD COUNT 6.3 10^3/uL (4.0-10.0)
[2024-02-13 07:39] LABS: ALBUMIN 2.8 G/DL (3.2-5.2); ALKALINE PHOSPHATASE 54 U/L (46-116); ALT/SGPT 65 U/L (7.0-40); AST/SGOT 40 U/L (<34); BILIRUBIN,TOTAL 0.6 MG/DL (0.3-1.2); BLOOD UREA NITROGEN 11 MG/DL (9-23); CALCIUM LEVEL 8.4 MG/DL (8.3-10.6); CARBON DIOXIDE LEVEL 28 MMOL/L (20-31); CHLORIDE LEVEL 110 MMOL/L (98-107); CREATININE FOR GFR 0.75 MG/DL (0.70-1.30); GLOMERULAR FILTRATION RATE > 60.0 (>42); GLUCOSE, FASTING 120 MG/DL (74-106); POTASSIUM SERUM 4.3 MMOL/L (3.5-5.1); SODIUM LEVEL 141 MMOL/L (136-145); TOTAL PROTEIN 5.7 G/DL (5.7-8.2)
[2024-02-13 07:44] VITALS: BP 116/54; TEMP 98; O2SAT 94
[2024-02-13 09:07] VITALS: BP 112/62
[2024-02-13 10:05] VITALS: BP 117/71; TEMP 98.1; O2SAT 96
[2024-02-13 14:03] VITALS: BP 117/58; TEMP 97.8; O2SAT 95
[2024-02-13] MEDS ORDERED: OLAN2.5T25 PO (14:45)
[2024-02-13] MEDS ORDERED: REXU1TAB2 PO (14:45)
[2024-02-13] MEDS: HALOPERIDOL LACTATE 5MG/ML VIAL IM PRN ×2 (19:41→21:31)
[2024-02-13] MEDS: BACLOFEN 10 MG TAB PO PRN (19:56)
[2024-02-13] MEDS: diphenhydrAMINE 50MG/ML VIAL IM PRN (21:53)
[2024-02-14 06:49] VITALS: BP 132/77; TEMP 97.1; O2SAT 96
[2024-02-14 06:55] VITALS: BP 132/77
[2024-02-14] MEDS ORDERED: TRAZ-252 PO (07:42)
[2024-02-14] MEDS ORDERED: COLA100C5 PO (07:42)
[2024-02-14] MEDS ORDERED: TRAM50TA2 PO (07:42)
[2024-02-14 08:32] LABS: HEMATOCRIT 42.1 % (42.0-52.0); HEMOGLOBIN 14.1 g/dl (13.5-17.5); MEAN CORPUSCULAR HEMOGLOBIN 30.5 pg (27.0-33.0); MEAN CORPUSCULAR HGB CONC 33.5 g/dl (32.0-36.5); MEAN CORPUSCULAR VOLUME 90.9 fl (80.0-96.0); PLATELET COUNT, AUTOMATED 218 10^3/uL (150-450); RED BLOOD COUNT 4.63 10^6/uL (4.30-6.10); WHITE BLOOD COUNT 5.6 10^3/uL (4.0-10.0)
[2024-02-14 08:59] LABS: ALKALINE PHOSPHATASE 59 U/L (46-116); ALT/SGPT 62 U/L (7.0-40); AST/SGOT 46 U/L (<34); BILIRUBIN,TOTAL 0.6 MG/DL (0.3-1.2); BLOOD UREA NITROGEN 10 MG/DL (9-23); CALCIUM LEVEL 8.5 MG/DL (8.3-10.6); CARBON DIOXIDE LEVEL 24 MMOL/L (20-31); CHLORIDE LEVEL 108 MMOL/L (98-107); CREATININE FOR GFR 0.68 MG/DL (0.70-1.30); GLOMERULAR FILTRATION RATE > 60.0 (>42); GLUCOSE, FASTING 150 MG/DL (74-106); POTASSIUM SERUM 3.9 MMOL/L (3.5-5.1); SODIUM LEVEL 140 MMOL/L (136-145); TOTAL PROTEIN 5.8 G/DL (5.7-8.2)
== END 2024-02-14 09:50 | disposition home health service (06) | DRG 291 ==
LOC: M ED 08:50 → EDBD 08:50 → INTOOBSV 16:22 → OBSVTOIN 16:22 → M ED INP 16:22 → M MS5PR 20:15 → M PCU 02-06 15:27 → M MS5PR 02-13 09:59
PROVIDERS: ADMIT Internal Medicine Nephrology; ATTEND Internal Medicine
DX: I11.0 Hypertensive heart disease with heart failure (principal); I50.33 Acute on chronic diastolic (congestive) heart failure; A41.9 Sepsis, unspecified organism; J69.0 Pneumonitis due to inhalation of food and vomit; J44.1 Chronic obstructive pulmonary disease with (acute) exacerbation; F03.918 Unspecified dementia, unspecified severity, with other behavioral disturbance; E87.4 Mixed disorder of acid-base balance; G93.40 Encephalopathy, unspecified; G91.2 (Idiopathic) normal pressure hydrocephalus; I48.91 Unspecified atrial fibrillation; I27.20 Pulmonary hypertension, unspecified; K21.9 Gastro-esophageal reflux disease without esophagitis; G47.33 Obstructive sleep apnea (adult) (pediatric); E66.9 Obesity, unspecified; Z68.36 Body mass index [BMI] 36.0-36.9, adult; Z95.0 Presence of cardiac pacemaker; N40.0 Benign prostatic hyperplasia without lower urinary tract symptoms; K76.0 Fatty (change of) liver, not elsewhere classified; G62.9 Polyneuropathy, unspecified; Z85.828 Personal history of other malignant neoplasm of skin; M54.30 Sciatica, unspecified side; R31.9 Hematuria, unspecified; Z66 Do not resuscitate; R26.89 Other abnormalities of gait and mobility; Z88.8 Allergy status to other drugs, medicaments and biological substances; Z79.899 Other long term (current) drug therapy; Z91.018 Allergy to other foods; Z98.41 Cataract extraction status, right eye; Z98.42 Cataract extraction status, left eye; Z87.891 Personal history of nicotine dependence

== ENCOUNTER → 2024-05-25 | Outpatient (CLI) | payer MEDICARE ==
[~2024-05-25] MED LIST changes: +ADV250INH INH; +BUPR75TA5 PO; +BUSP10TA PO; +COLA100C5 PO; +LISI20TA33 PO; +MATZ240T PO; +MULTTAB61 PO; +OLAN2.5T25 PO; +OMEGCAP4 PO; +PRES10CA2 PO; +REXU1TAB2 PO; +SPIR-10 PO; +TORS20TA2 PO; +TRAZ-252 PO; +VENTAER INH; +VITA100T14 PO
[2024-05-25 19:25] LABS: ALBUMIN 3.8 G/DL (3.2-5.2); ALKALINE PHOSPHATASE 54 U/L (46-116); ALT/SGPT 34 U/L (7.0-40); AST/SGOT 21 U/L (<34); BILIRUBIN,TOTAL 0.3 MG/DL (0.3-1.2); BLOOD UREA NITROGEN 28 MG/DL (9-23); CARBON DIOXIDE LEVEL 24 MMOL/L (20-31); CHLORIDE LEVEL 107 MMOL/L (98-107); CREATININE FOR GFR 0.97 MG/DL (0.70-1.30); GLOMERULAR FILTRATION RATE > 60.0 (>42); GLUCOSE, FASTING 95 MG/DL (74-106); POTASSIUM SERUM 4.7 MMOL/L (3.5-5.1); SODIUM LEVEL 136 MMOL/L (136-145); TOTAL PROTEIN 6.8 G/DL (5.7-8.2)
[2024-05-25 19:44] LABS: HEMOGLOBIN A1c 5.8 % (4.0-6.0)
== END ==
LOC: M PLALAB 14:53
PROVIDERS: ATTEND Nurse Practitioner Adult Health
DX: I50.32 Chronic diastolic (congestive) heart failure (principal); I48.91 Unspecified atrial fibrillation; R73.9 Hyperglycemia, unspecified

== ENCOUNTER → 2024-06-01 | Outpatient (CLI) | payer MEDICARE ==
[2024-06-01 16:26] LABS: VITAMIN B12 LEVEL 417 PG/ML (211-911)
[2024-06-01 16:30] LABS: FOLATE > 24.0 NG/ML (>5.4)
[2024-06-06 02:32] LABS: VITAMIN E(ALPHA TOCOPHEROL) 15.6 mg/L (5.7-19.9); VITAMIN E(GAMMA TOCOPHEROL) < 1.0 mg/L (<=4.3)
[2024-06-07 08:27] LABS: VITAMIN B1 LEVEL WHOLE BLOOD 153 nmol/L (78-185)
[2024-06-07 16:36] LABS: VITAMIN B6,PYRIDOXAL PHOSPHATE 5.4 ng/mL (2.1-21.7)
== END ==
LOC: M PLALAB 13:06
PROVIDERS: ATTEND Psychiatry & Neurology Neurology
DX: D51.9 Vitamin B12 deficiency anemia, unspecified (principal); E51.9 Thiamine deficiency, unspecified; E53.1 Pyridoxine deficiency; R41.3 Other amnesia

== ENCOUNTER 2024-10-29 17:32 | Inpatient (IN) | payer MEDICARE ==
[~2024-10-29] VITALS: Ht 170.2 cm; Wt 94.0 kg
[~2024-10-29 17:32] MED LIST changes: -ADV250INH INH; +ADVA1AER9 INH; +GABA-1172 PO; -GABA-282 PO; -OLAN2.5T25 PO; +OLAN2.5T53 PO
[2024-10-29] MEDS: NS (Normal Saline) 0.9% 1,000 ML IV ONE (17:50)
[2024-10-29 17:56] LABS: BASO # 0.1 10^3/uL (0.0-0.2); BASO % 0.6 % (0.0-1.0); EOS # 0.1 10^3/uL (0.0-0.5); EOS % 0.6 % (0.0-3.0); HEMATOCRIT 46.9 % (42.0-52.0); HEMOGLOBIN 15.4 g/dl (13.5-17.5); LYMPH # 1.6 10^3/uL (1.5-5.0); LYMPH % 12.4 % (24.0-44.0); MEAN CORPUSCULAR HEMOGLOBIN 31.4 pg (27.0-33.0); MEAN CORPUSCULAR HGB CONC 32.8 g/dl (32.0-36.5); MEAN CORPUSCULAR VOLUME 95.5 fl (80.0-96.0); MONO # 1.2 10^3/uL (0.0-0.8); MONO % 9.4 % (2.0-8.0); NEUTROPHILS # 9.7 10^3/uL (1.5-8.5); NEUTROPHILS % 76.6 % (36.0-66.0); PLATELET COUNT, AUTOMATED 284 10^3/uL (150-450); RED BLOOD COUNT 4.91 10^6/uL (4.30-6.10); WHITE BLOOD COUNT 12.7 10^3/uL (4.0-10.0)
[2024-10-29] MEDS ORDERED: ISOVUE-370 76% 100ML VIAL As Ordered ONE (18:17)
[2024-10-29 18:26] LABS: ALBUMIN 3.2 G/DL (3.2-5.2); ALKALINE PHOSPHATASE 53 U/L (40-129); ALT/SGPT 46 U/L (7.0-40); AST/SGOT 92 U/L (<34); BILIRUBIN,DIRECT 0.4 MG/DL (<0.4); BILIRUBIN,TOTAL 0.9 MG/DL (0.3-1.2); BLOOD UREA NITROGEN 40 MG/DL (9-23); CALCIUM LEVEL 9.1 MG/DL (8.3-10.6); CARBON DIOXIDE LEVEL 22 MMOL/L (20-31); CHLORIDE LEVEL 122 MMOL/L (98-107); CREATININE FOR GFR 1.08 MG/DL (0.70-1.30); GLOMERULAR FILTRATION RATE > 60.0 (>42); GLUCOSE, FASTING 119 MG/DL (74-106); POTASSIUM SERUM 4.1 MMOL/L (3.5-5.1); SODIUM LEVEL 158 MMOL/L (136-145); TOTAL PROTEIN 6.9 G/DL (5.7-8.2)
[2024-10-29 18:28] LABS: THYROID STIMULATING HORMONE 2.043 uIU/ML (0.55-4.78)
[2024-10-29 18:29] LABS: KETONE, URINE AUTO RFX NEGATIVE (NEGATIVE); LEUKOCYTE ESTERASE UR AUTO RFX NEGATIVE (NEGATIVE); MUCUS, URINE RFX SMALL (NEGATIVE); NITRITE, URINE AUTO RFX NEGATIVE (NEGATIVE); RBC, URINE AUTO RFX 1 /HPF (0-3); SQUAM EPITHELIAL CELL UR AURFX 0 /HPF (0-6); WBC, URINE AUTO RFX 2 /HPF (0-3)
[2024-10-29 18:37] LABS: ETHYL ALCOHOL (ETHANOL) < 0.003 % (0.000-0.010)
[2024-10-29 18:38] LABS: CK-MB VALUE MASS 1.9 NG/ML (<3.6); SALICYLATE LEVEL < 3.0 MG/DL (<30)
[2024-10-29 18:44] LABS: DIGOXIN LEVEL 0.3 NG/ML (0.8-2.0)
[2024-10-29 18:49] LABS: ABG BASE EXCESS -3.4 (-2.0-2.0); ABG O2 SATURATION 94.4 % (95.0-99.0); ABG PARTIAL PRESSURE CO2 27.4 mmHg (35.0-45.0); ABG STANDARD HCO3 21.6 MMOL/L. (22.0-26.0); ABG TOTAL CO2 19.8 MMOL/L (23.0-31.0); ABG pH (ARTERIAL) 7.459 UNITS (7.350-7.450)
[2024-10-29 18:50] LABS: CPK CREATINE PHOSPHOKINASE 1408 U/L (46-171); MB/CK RELATIVE INDEX 0.13 (< OR =4)
[2024-10-29] MEDS: PIPERACILLIN/TAZOBACTAM SOD 4.5 GM in DEXTROSE 5% (D5W) ADV/MINI-BAG 50 ML IV ONE (19:24)
[2024-10-29] MEDS: [UNRECOGNIZED DRUG - OTHER] IV ONE (19:24)
[2024-10-29] MEDS: NS 0.9% IV ONE (19:24)
[2024-10-29] MEDS: ACETAMINOPHEN *IV* 1,000 MG in IV 1 EA IV ONE (19:24)
[2024-10-29 20:00] LABS: INR 1.26; PARTIAL THROMBOPLASTIN TIME 21.7 SECONDS (24.8-34.2); PROTHROMBIN TIME 16.1 SECONDS (12.5-14.5)
[2024-10-29 20:15] LABS: CK-MB VALUE MASS 1.6 NG/ML (<3.6); MB/CK RELATIVE INDEX 0.14 (< OR =4)
[2024-10-29] MEDS: METOPROLOL 5 MG/5 ML VIAL IV SCH (20:23)
[2024-10-29] MEDS: fentaNYL 100 MCG/2 ML INJECTION IV ONE (20:24)
[2024-10-29] MEDS ORDERED: OLAN2.5T53 PO (21:03)
[2024-10-29] MEDS ORDERED: HOME MED LIST COMPLETE! XX SCH (21:10)
[2024-10-29 22:12] LABS: ERYTHROCYTE SEDIMENTATION RATE 33 mm/hr (0-20)
[2024-10-29 22:46] LABS: PROCALCITONIN 0.33 ng/ml
[2024-10-29 22:50] LABS: MAGNESIUM LEVEL 2.2 MG/DL (1.8-2.4)
[2024-10-29] MEDS ORDERED: ACETAMINOPHEN 650MG SUPP PR PRN (22:50)
[2024-10-29] MEDS ORDERED: CEFEPIME HCL 2 GM in D5W 50 ML IV SCH (22:50)
[2024-10-29] MEDS ORDERED: DIGOXIN INJ 0.5 MG/2 ML AMP IV SCH (22:50)
[2024-10-29 23:43] LABS: BLOOD UREA NITROGEN 36 MG/DL (9-23); CALCIUM LEVEL 7.8 MG/DL (8.3-10.6); CARBON DIOXIDE LEVEL 19 MMOL/L (20-31); CHLORIDE LEVEL 127 MMOL/L (98-107); CREATININE FOR GFR 1.04 MG/DL (0.70-1.30); GLOMERULAR FILTRATION RATE > 60.0 (>42); GLUCOSE, FASTING 121 MG/DL (74-106); PHOSPHORUS LEVEL 3.7 MG/DL (2.4-5.1); SODIUM LEVEL 158 MMOL/L (136-145)
[2024-10-30] VITALS (7 sets, daily range): BP systolic 111–146; BP diastolic 57–78; TEMP 97.8–101.8; O2SAT 92–98
[2024-10-30] MEDS: CEFEPIME HCL 2 GM in D5W 50 ML IV SCH (00:35)
[2024-10-30] MEDS: DIGOXIN INJ 0.5 MG/2 ML AMP IV SCH (00:35)
[2024-10-30] MEDS: LR 1,000 ML IV SCH (00:45)
[2024-10-30] MEDS: ENOXAPARIN 100MG/1ML SYRINGE (J1650 PER 10MG) SC SCH ×2 (00:45→12:34)
[2024-10-30 07:06] LABS: HEMATOCRIT 43.3 % (42.0-52.0); HEMOGLOBIN 13.9 g/dl (13.5-17.5); MEAN CORPUSCULAR HEMOGLOBIN 30.8 pg (27.0-33.0); MEAN CORPUSCULAR HGB CONC 32.1 g/dl (32.0-36.5); PLATELET COUNT, AUTOMATED 237 10^3/uL (150-450); RED BLOOD COUNT 4.51 10^6/uL (4.30-6.10); WHITE BLOOD COUNT 10.1 10^3/uL (4.0-10.0)
[2024-10-30 07:32] LABS: ALBUMIN 2.7 G/DL (3.2-5.2); ALKALINE PHOSPHATASE 45 U/L (40-129); ALT/SGPT 36 U/L (7.0-40); AST/SGOT 67 U/L (<34); BILIRUBIN,TOTAL 0.7 MG/DL (0.3-1.2); BLOOD UREA NITROGEN 33 MG/DL (9-23); CALCIUM LEVEL 8.2 MG/DL (8.3-10.6); CARBON DIOXIDE LEVEL 23 MMOL/L (20-31); CHLORIDE LEVEL 126 MMOL/L (98-107); CREATININE FOR GFR 1.01 MG/DL (0.70-1.30); GLOMERULAR FILTRATION RATE > 60.0 (>42); GLUCOSE, FASTING 97 MG/DL (74-106); MAGNESIUM LEVEL 2.6 MG/DL (1.8-2.4); SODIUM LEVEL 162 MMOL/L (136-145); TOTAL PROTEIN 5.8 G/DL (5.7-8.2)
[2024-10-30] MEDS ORDERED: DIGOXIN 0.125 MG TAB PO SCH (09:00)
[2024-10-30] MEDS: TAMSULOSIN 0.4 MG CAP PO SCH (09:00)
[2024-10-30] MEDS: busPIRone 10 MG TAB PO SCH (09:00)
[2024-10-30] MEDS: D5W 1,000 ML IV SCH (11:30)
[2024-10-30 12:29] LABS: GLOMERULAR FILTRATION RATE > 60.0 (>42)
[2024-10-30] MEDS: METOPROLOL 5 MG/5 ML VIAL IV PRN (12:34)
[2024-10-30] MEDS: VANCOMYCIN HCL 2,000 MG, VIAL MATE ADAPTER 1 EACH in NS 500 ML IV ONE (12:34)
[2024-10-30] MEDS: ADVAIR HFA 115/21MCG INHALER INH SCH (12:43)
[2024-10-30] MEDS: ACETAMINOPHEN 650MG SUPP PR PRN (18:27)
[2024-10-30 18:40] LABS: BLOOD UREA NITROGEN 27 MG/DL (9-23); CALCIUM LEVEL 8.1 MG/DL (8.3-10.6); CARBON DIOXIDE LEVEL 22 MMOL/L (20-31); CHLORIDE LEVEL 129 MMOL/L (98-107); CREATININE FOR GFR 1.01 MG/DL (0.70-1.30); GLOMERULAR FILTRATION RATE > 60.0 (>42); GLUCOSE, FASTING 105 MG/DL (74-106); POTASSIUM SERUM 3.9 MMOL/L (3.5-5.1); SODIUM LEVEL 164 MMOL/L (136-145)
[2024-10-30 23:15] LABS: BLOOD UREA NITROGEN 28 MG/DL (9-23); CALCIUM LEVEL 7.9 MG/DL (8.3-10.6); CARBON DIOXIDE LEVEL 24 MMOL/L (20-31); CHLORIDE LEVEL 128 MMOL/L (98-107); CREATININE FOR GFR 1.04 MG/DL (0.70-1.30); GLOMERULAR FILTRATION RATE > 60.0 (>42); GLUCOSE, FASTING 125 MG/DL (74-106); POTASSIUM SERUM 3.7 MMOL/L (3.5-5.1); SODIUM LEVEL 161 MMOL/L (136-145)
[2024-10-31] VITALS (9 sets, daily range): BP systolic 113–159; BP diastolic 61–92; TEMP 99.3–101; O2SAT 92–96
[2024-10-31] MEDS ORDERED: VANCOMYCIN HCL 1,250 MG, VIAL MATE ADAPTER 1 EACH in NS 250 ML IV SCH
[2024-10-31] MEDS: VANCOMYCIN HCL 1,250 MG, VIAL MATE ADAPTER 1 EACH in D5W 250 ML IV SCH (00:47)
[2024-10-31 07:24] LABS: BASO % 0.5 % (0.0-1.0); EOS # 0.6 10^3/uL (0.0-0.5); EOS % 7.1 % (0.0-3.0); HEMATOCRIT 41.5 % (42.0-52.0); HEMOGLOBIN 13.2 g/dl (13.5-17.5); LYMPH # 1.1 10^3/uL (1.5-5.0); LYMPH % 12.7 % (24.0-44.0); MEAN CORPUSCULAR HEMOGLOBIN 30.6 pg (27.0-33.0); MEAN CORPUSCULAR HGB CONC 31.8 g/dl (32.0-36.5); MEAN CORPUSCULAR VOLUME 96.1 fl (80.0-96.0); MONO # 0.5 10^3/uL (0.0-0.8); MONO % 5.8 % (2.0-8.0); NEUTROPHILS # 6.4 10^3/uL (1.5-8.5); NEUTROPHILS % 73.6 % (36.0-66.0); PLATELET COUNT, AUTOMATED 232 10^3/uL (150-450); RED BLOOD COUNT 4.32 10^6/uL (4.30-6.10); WHITE BLOOD COUNT 8.8 10^3/uL (4.0-10.0)
[2024-10-31 07:55] LABS: ALBUMIN 2.5 G/DL (3.2-5.2); BLOOD UREA NITROGEN 25 MG/DL (9-23); CALCIUM LEVEL 7.8 MG/DL (8.3-10.6); CARBON DIOXIDE LEVEL 23 MMOL/L (20-31); CHLORIDE LEVEL 124 MMOL/L (98-107); CREATININE FOR GFR 1.01 MG/DL (0.70-1.30); GLOMERULAR FILTRATION RATE > 60.0 (>42); GLUCOSE, FASTING 108 MG/DL (74-106); MAGNESIUM LEVEL 2.3 MG/DL (1.8-2.4); PHOSPHORUS LEVEL 2.8 MG/DL (2.4-5.1); POTASSIUM SERUM 3.7 MMOL/L (3.5-5.1); SODIUM LEVEL 160 MMOL/L (136-145)
[2024-10-31 07:57] LABS: BLOOD UREA NITROGEN 27 MG/DL (9-23); CARBON DIOXIDE LEVEL 22 MMOL/L (20-31); CHLORIDE LEVEL 126 MMOL/L (98-107); CREATININE FOR GFR 1.03 MG/DL (0.70-1.30); GLOMERULAR FILTRATION RATE > 60.0 (>42); GLUCOSE, FASTING 110 MG/DL (74-106); POTASSIUM SERUM 3.7 MMOL/L (3.5-5.1); SODIUM LEVEL 161 MMOL/L (136-145)
[2024-10-31 17:36] LABS: BLOOD UREA NITROGEN 22 MG/DL (9-23); CALCIUM LEVEL 7.9 MG/DL (8.3-10.6); CARBON DIOXIDE LEVEL 23 MMOL/L (20-31); CHLORIDE LEVEL 126 MMOL/L (98-107); CREATININE FOR GFR 0.98 MG/DL (0.70-1.30); GLOMERULAR FILTRATION RATE > 60.0 (>42); GLUCOSE, FASTING 135 MG/DL (74-106); POTASSIUM SERUM 3.6 MMOL/L (3.5-5.1); SODIUM LEVEL 159 MMOL/L (136-145)
[2024-11-01 03:48] VITALS: BP 113/68; TEMP 99.8; O2SAT 94
[2024-11-01 06:22] LABS: BASO % 0.4 % (0.0-1.0); EOS # 0.8 10^3/uL (0.0-0.5); EOS % 10.7 % (0.0-3.0); HEMATOCRIT 42.5 % (42.0-52.0); HEMOGLOBIN 13.6 g/dl (13.5-17.5); LYMPH % 13.7 % (24.0-44.0); MEAN CORPUSCULAR HEMOGLOBIN 30.6 pg (27.0-33.0); MEAN CORPUSCULAR VOLUME 95.7 fl (80.0-96.0); MONO # 0.4 10^3/uL (0.0-0.8); MONO % 5.2 % (2.0-8.0); NEUTROPHILS # 4.9 10^3/uL (1.5-8.5); NEUTROPHILS % 69.6 % (36.0-66.0); PLATELET COUNT, AUTOMATED 222 10^3/uL (150-450); RED BLOOD COUNT 4.44 10^6/uL (4.30-6.10); WHITE BLOOD COUNT 7.1 10^3/uL (4.0-10.0)
[2024-11-01 06:43] LABS: BLOOD UREA NITROGEN 21 MG/DL (9-23); CALCIUM LEVEL 7.5 MG/DL (8.3-10.6); CARBON DIOXIDE LEVEL 24 MMOL/L (20-31); CHLORIDE LEVEL 121 MMOL/L (98-107); CREATININE FOR GFR 0.97 MG/DL (0.70-1.30); GLOMERULAR FILTRATION RATE > 60.0 (>42); GLUCOSE, FASTING 130 MG/DL (74-106); POTASSIUM SERUM 3.6 MMOL/L (3.5-5.1); SODIUM LEVEL 156 MMOL/L (136-145)
[2024-11-01 08:18] VITALS: BP 130/60; TEMP 98.1; O2SAT 96
[2024-11-01] MEDS: POTASSIUM CHLORIDE INJ 10 MEQ in D5W 1,000 ML IV SCH (11:07)
[2024-11-01 12:24] VITALS: BP 138/61; TEMP 98.4; O2SAT 97
[2024-11-01 13:58] LABS: PROCALCITONIN 0.44 ng/ml
[2024-11-01] MEDS: VANCOMYCIN HCL 1,000 MG, VIAL MATE ADAPTER 1 EACH in NS 250 ML IV SCH (15:44)
[2024-11-01 15:48] VITALS: O2SAT 93
[2024-11-01 16:59] VITALS: BP 115/59; TEMP 100.4; O2SAT 91
[2024-11-01 19:14] VITALS: BP 128/58; TEMP 97.9; O2SAT 97
[2024-11-02] VITALS (8 sets, daily range): BP systolic 104–132; BP diastolic 51–73; TEMP 97.5–98.9; O2SAT 93–97
[2024-11-02 07:04] LABS: BASO % 0.5 % (0.0-1.0); EOS # 0.8 10^3/uL (0.0-0.5); EOS % 12.4 % (0.0-3.0); HEMATOCRIT 38.8 % (42.0-52.0); HEMOGLOBIN 12.7 g/dl (13.5-17.5); LYMPH % 15.5 % (24.0-44.0); MEAN CORPUSCULAR HEMOGLOBIN 30.6 pg (27.0-33.0); MEAN CORPUSCULAR HGB CONC 32.7 g/dl (32.0-36.5); MEAN CORPUSCULAR VOLUME 93.5 fl (80.0-96.0); MONO # 0.4 10^3/uL (0.0-0.8); MONO % 6.1 % (2.0-8.0); NEUTROPHILS # 4.2 10^3/uL (1.5-8.5); NEUTROPHILS % 65.2 % (36.0-66.0); PLATELET COUNT, AUTOMATED 188 10^3/uL (150-450); RED BLOOD COUNT 4.15 10^6/uL (4.30-6.10); WHITE BLOOD COUNT 6.5 10^3/uL (4.0-10.0)
[2024-11-02 07:22] LABS: BLOOD UREA NITROGEN 17 MG/DL (9-23); CALCIUM LEVEL 7.2 MG/DL (8.3-10.6); CARBON DIOXIDE LEVEL 24 MMOL/L (20-31); CHLORIDE LEVEL 114 MMOL/L (98-107); CREATININE FOR GFR 0.88 MG/DL (0.70-1.30); GLOMERULAR FILTRATION RATE > 60.0 (>42); GLUCOSE, FASTING 137 MG/DL (74-106); POTASSIUM SERUM 3.4 MMOL/L (3.5-5.1); SODIUM LEVEL 149 MMOL/L (136-145)
[2024-11-02] MEDS: KCL 10MEQ/100ML SWI (KRUN) 10 MEQ in IV 1 EA IV SCH (10:00)
[2024-11-02] MEDS ORDERED: POTASSIUM CHLORIDE INJ 20 MEQ in D5W 1,000 ML IV SCH (13:00)
[2024-11-02] MEDS: KCL 20MEQ IN D5W 1000ML 1,000 ML IV SCH (13:24)
[2024-11-02] MEDS: VANCOMYCIN HCL 1,000 MG, VIAL MATE ADAPTER 1 EACH in NS 250 ML IV SCH (16:35)
[2024-11-03 04:22] VITALS: BP 118/64; TEMP 97.4; O2SAT 96
[2024-11-03 06:51] LABS: BASO % 0.6 % (0.0-1.0); EOS # 0.6 10^3/uL (0.0-0.5); EOS % 8.4 % (0.0-3.0); HEMATOCRIT 37.6 % (42.0-52.0); HEMOGLOBIN 12.6 g/dl (13.5-17.5); LYMPH # 1.1 10^3/uL (1.5-5.0); LYMPH % 15.4 % (24.0-44.0); MEAN CORPUSCULAR HEMOGLOBIN 30.8 pg (27.0-33.0); MEAN CORPUSCULAR HGB CONC 33.5 g/dl (32.0-36.5); MEAN CORPUSCULAR VOLUME 91.9 fl (80.0-96.0); MONO # 0.5 10^3/uL (0.0-0.8); MONO % 6.9 % (2.0-8.0); NEUTROPHILS # 4.6 10^3/uL (1.5-8.5); NEUTROPHILS % 68.3 % (36.0-66.0); PLATELET COUNT, AUTOMATED 186 10^3/uL (150-450); RED BLOOD COUNT 4.09 10^6/uL (4.30-6.10); WHITE BLOOD COUNT 6.8 10^3/uL (4.0-10.0)
[2024-11-03 07:14] LABS: BLOOD UREA NITROGEN 13 MG/DL (9-23); CALCIUM LEVEL 7.2 MG/DL (8.3-10.6); CARBON DIOXIDE LEVEL 22 MMOL/L (20-31); CHLORIDE LEVEL 112 MMOL/L (98-107); CREATININE FOR GFR 0.77 MG/DL (0.70-1.30); GLOMERULAR FILTRATION RATE > 60.0 (>42); GLUCOSE, FASTING 113 MG/DL (74-106); POTASSIUM SERUM 3.7 MMOL/L (3.5-5.1); SODIUM LEVEL 144 MMOL/L (136-145)
[2024-11-03 07:39] VITALS: BP 133/60; TEMP 98; O2SAT 96
[2024-11-03] MEDS ORDERED: HYOSCYAMINE SULFATE 0.125 MG SUBL TABLET PO PRN (13:10)
[2024-11-03] MEDS ORDERED: ATROPINE SULFATE 1% OPHTH SOLN 2ML BTL SL PRN (13:10)
[2024-11-03] MEDS ORDERED: ONDANSETRON 4MG ORAL DISINTEGRATING TAB PO PRN (13:10)
[2024-11-03] MEDS: MORPHINE 10MG/0.5ML ORAL CONCENTRATE SOLUTION U/D SL PRN (21:30)
[2024-11-03] MEDS: LORazepam 1 MG TAB PO PRN (21:31)
[2024-11-07] MEDS ORDERED: MORP1SOL5 PO (10:51)
[2024-11-07] MEDS ORDERED: ATIV1TAB10 PO (10:51)
[2024-11-07] MEDS ORDERED: HYOS125TA PO (10:51)
== END 2024-11-05 13:15 | disposition hospice, home (50) | DRG 871 ==
LOC: EDBD 17:32 → M ED 19:32 → M ED INP 22:46 → M PCU 10-30 09:38 → M MS5PR 11-03 15:14
PROVIDERS: ADMIT Family Medicine; ATTEND Internal Medicine
DX: A41.9 Sepsis, unspecified organism (principal); G93.41 Metabolic encephalopathy; E72.20 Disorder of urea cycle metabolism, unspecified; E87.0 Hyperosmolality and hypernatremia; F02.80 Dementia in other diseases classified elsewhere, unspecified severity, without behavioral disturbance, psychotic disturbance, mood disturbance, and anxiety; N18.9 Chronic kidney disease, unspecified; D64.9 Anemia, unspecified; J44.9 Chronic obstructive pulmonary disease, unspecified; G30.9 Alzheimer's disease, unspecified; I12.9 Hypertensive chronic kidney disease with stage 1 through stage 4 chronic kidney disease, or unspecified chronic kidney disease; I48.91 Unspecified atrial fibrillation; E87.6 Hypokalemia; L89.892 Pressure ulcer of other site, stage 2; Z51.5 Encounter for palliative care; G20.C Parkinsonism, unspecified; Z87.891 Personal history of nicotine dependence; E66.9 Obesity, unspecified; Z98.41 Cataract extraction status, right eye; Z98.42 Cataract extraction status, left eye; M54.59 Other low back pain; Z66 Do not resuscitate; Z79.899 Other long term (current) drug therapy; Z91.018 Allergy to other foods; Z88.6 Allergy status to analgesic agent; K76.0 Fatty (change of) liver, not elsewhere classified